=== PATIENT | female | born 1960 | race Caucasian/White ===

== ENCOUNTER 2022-05-26 08:10 | Outpatient (CLI) | payer OTHER, SELFPAY ==
[2022-05-26 10:59] LABS: Albumin* 4.4 g/dL (3.3-5.0); Chloride* 103 mmol/L (96-114); Sodium* 139 mmol/L (135-149)
[2022-05-26 11:00] LABS: Potassium* 4.9 mmol/L (3.6-5.1)
[2022-05-26 11:01] LABS: Cholesterol* 230 mg/dL (90-199)
[2022-05-26 11:02] LABS: Alanine Aminotransferase* 26 U/L (4-35); Alkaline Phosphatase* 83 U/L (40-150); Aspartate Amino Transferase* 30 U/L (12-35); Bilirubin Total* 0.5 mg/dL (0.1-1.5); Blood Urea Nitrogen* 18 mg/dL (7-30); Carbon Dioxide* 30 mmol/L (20-32); Creatinine* 0.7 mg/dL (0.5-1.5); Estimated Glomerular Filt Rate 97 ml/min; Glucose* 98 mg/dL (60-115); Total Protein* 7.3 g/dL (6.0-8.3); Triglycerides* 88 mg/dL (40-149)
[2022-05-26 11:03] LABS: Calcium* 9.7 mg/dL (8.4-10.6); HDL Cholesterol* 60 mg/dL (>=50); LDL Cholesterol Calculated 152 mg/dL (<100)
== END 2022-05-26 08:11 | disposition home or self-care (01) ==
PROVIDERS: PCP Internal Medicine; Visit Provider Internal Medicine
DX: E03.9 Hypothyroidism, unspecified (principal); Z13.6 Encounter for screening for cardiovascular disorders; R61 Generalized hyperhidrosis
CPT/HCPCS: 80053; 80061; 84443

== ENCOUNTER 2022-06-03 14:15 | Outpatient (CLI) | payer OTHER, SELFPAY ==
--- NOTE | 2022-06-03 14:30 | MR_ITS ---
[facility] [address] [facility] [address] Phone:?[phone] Fax:?[phone] Referring Physician Information: Dann Huffman M.D. [address] [facility] [address] Phone:?[phone] Fax:?[phone] Patient:Jt Sanchez D.O.B:?1960 Sex:?Female Phone:?[phone] [facility] MRN:?[id number] Exam Date:?06/03/2022 ? EXAM: MRI of the LEFT KNEE, without contrast CLINICAL INFORMATION: Female, 61 years old, with left knee pain. INDICATION: Evaluate for meniscal injury. PRIOR SURGERY: None reported. PLAIN FILMS: None available. COMPARISONS: No prior MRIs available. TECHNICAL INFORMATION: Using a 1.5T MR scanner and a localizing surface coil: sagittals: PD, PDFS coronals: PD, STIR axials: PD, T2FS SEDATION: None CONTRAST: None FINDINGS: Knee joint: Effusion: Mild to moderate left knee effusion. Popliteal cyst: [id number], inferiorly leaking/ruptured Richter cyst (axial T2FS series 4 images 14-32). Loose bodies: None. Subcutaneous and extra-articular soft tissues: Mild anterior subcutaneous soft tissue swelling extending from the patella to the tibial tubercle. Ligaments: ACL: Intact ACL anteromedial and posterolateral bundles, without sprain or tear. PCL: Intact PCL, without acute or chronic injury. MCL: Mild thickening involving the proximal one third of the superficial MCL, without MCL tear (coronal PD series 7 image 15). LCL: Intact LCL, without injury. Posterolateral corner: No posterolateral corner soft tissue injury. Popliteus, biceps femoris, iliotibial band, popliteofibular ligament and lateral gastrocnemius are intact. Posteromedial corner: No posteromedial corner soft tissue injury. Semimembranosus, pes anserine tendons and posterior oblique ligament are without injury, tendinopathy or bursitis. Extensor mechanism: Patellar tendon: Intact, without tendinopathy. Quadriceps tendon: Intact, without tendinopathy. Retinacula: Medial and lateral retinacula are intact. Fat pads: Unremarkable infrapatellar Hoffa's, quadriceps and prefemoral fat pads. Medial compartment: Medial meniscus: Apical free edge and superior surface tearing is present throughout the posterior horn over a length of 1.7 cm (sagittal PDFS series 6 images 9-14). Meniscal extrusion measures 5 mm. No parameniscal cyst. Medial femoral condyle: Broad-based grade III chondromalacia of the junction of the central and posterior surfaces of the medial femoral condyle, with mild marginal cytosis. Medial tibial plateau: Generalized grade II/III chondromalacia of the medial tibial plateau, with moderate reactive osseous changes and mild marginal osteophytosis. Lateral compartment: Lateral meniscus: No articular surface, meniscosynovial junction or root tear. No displacement, extrusion or parameniscal cyst. Lateral femoral condyle: Approximately 1.5 x 1.1 cm area of grade III chondromalacia involving the superior aspect of the posterior surface (sagittal PDFS series 6 image 22 and axial T2FS series 4 image 13). Lateral tibial plateau: No chondromalacia or osteochondral abnormality. Patellofemoral joint: Patella: Generalized grade III chondromalacia of the patella, with mild-moderate reactive osseous changes and mild marginal osteophytosis. Trochlea: Broad-based grade III chondromalacia of the medial facet and central sulcus, with mild marginal osteophytosis and reactive osseous changes. Proximal tibiofibular joint: Unremarkable, without evidence of ligament sprain injury, joint effusion or adjacent marrow edema. Bones: No stress/occult fractures or other marrow edema/pathology. IMPRESSION: 1. Apical free edge and superior surface tearing of the medial meniscal posterior horn measuring 1.7 cm, with 5 mm of meniscal extrusion. 2. Moderate osteoarthritis of the patellofemoral compartment. 3. Mild-moderate osteoarthritis of the medial compartment. 4. Mild-moderate knee joint effusion with a [id number]-vmhgq, inferiorly leaking/ruptured Richter cyst. 5. Chronic sequela low-grade proximal MCL sprain, without tear. No ACL, PCL, or LCL sprain/tear. 6. Medium-sized area of grade III chondromalacia of the posterior surface of the lateral tibial plateau. 7. No lateral meniscal tear. BC Electronically signed on 06/04/2022 9:24:00 AM by Amol Mobley M.D.
== END 2022-06-03 14:16 | disposition home or self-care (01) ==
LOC: MRI 14:16
PROVIDERS: PCP Internal Medicine; Visit Provider Internal Medicine
DX: M25.562 Pain in left knee (principal); M23.222 Derangement of posterior horn of medial meniscus due to old tear or injury, left knee; M25.462 Effusion, left knee; S83.412A Sprain of medial collateral ligament of left knee, initial encounter; M94.262 Chondromalacia, left knee; M17.12 Unilateral primary osteoarthritis, left knee
CPT/HCPCS: 73721

== ENCOUNTER 2022-09-08 09:00 | Outpatient (RCR) | payer OTHER, SELFPAY | END 2022-09-09 16:46 | disposition home or self-care (01) | PROVIDERS: PCP Internal Medicine; Visit Provider Orthopaedic Surgery Sports Medicine | DX: S83.232A Complex tear of medial meniscus, current injury, left knee, initial encounter (principal); M17.12 Unilateral primary osteoarthritis, left knee; R26.2 Difficulty in walking, not elsewhere classified; M25.662 Stiffness of left knee, not elsewhere classified; M25.562 Pain in left knee; Z51.89 Encounter for other specified aftercare | CPT/HCPCS: 97012; 97110; 97112; 97162; 97535 ==

== ENCOUNTER 2023-01-21 07:51 | Outpatient (CLI) | payer OTHER, SELFPAY | END 2023-01-21 07:52 | disposition home or self-care (01) | LOC: NFLDREF 01-30 11:26 | PROVIDERS: PCP Internal Medicine; Referring Provider Internal Medicine; Visit Provider Internal Medicine | DX: Z00.00 Encounter for general adult medical examination without abnormal findings (principal); E03.9 Hypothyroidism, unspecified; Z13.6 Encounter for screening for cardiovascular disorders; Z13.9 Encounter for screening, unspecified | CPT/HCPCS: 80053; 80061; 84443 ==

== ENCOUNTER 2023-10-07 18:44 | Outpatient (CLI) | payer OTHER, SELFPAY ==
--- OUTSIDE RECORDS SUMMARY | 2023-10-07 18:46 | XMS_ITS | Encounter Summary ---
Author Organization [facility] Address [address] [place] [id number] Care Team Providers Care Occup Therapist Name Role Phone Unavailable Primary Care Provider Unavailabl e Reason for Visit * Physical Therapy (Routine) - Closed Specialty Diagnoses / Procedures Referred By Danielito modi Referred To Contact Diagnoses Lymphedema Secondary Procedures PT or OT eval and treat (first available) Leeanna Elizondo APRN, INDUCTION HEATING EQUIPMENT SETTER [address] [place] [phone] [facility] Referral ID Status Reason Start Date Expiration Date Visits Re quested Visits Authorized [id number] Closed 06/26/2023 06/25/2024 1 1 Encounter Details Date Type Department Care Team (Latest Contact Info) Description 07/14/2023 10:00 AM EVALUATOR Comprehensive Visit Department of Physical Medicine and Rehabilitation in [place], [place] [address] [place] [phone] Leeanna Elizondo APRN, INDUCTION HEATING EQUIPMENT SETTER [address] [place] [phone] Venice Black P.T., D.P.T., OncCS [address] [place] [phone] Lymphedema Secondary Social History Tobacco Use Types Packs/Day Years Used Date Smoking Tobacco: Never Passive Smoke Exposure: Never Smokeless Tobacco: Never Alcohol Use Standard Drinks/Week Comments Yes 4 (1 standard drink = 0.6 oz pur e alcohol) [facility] Utilities Answer Date Recorded In the past 12 months has th e electric, gas, oil, or water company threatened to shut off services in your home? No 07/13/2023 Humiliation, Afraid, Rape, and Kick questionnair e Answer Date Recorded Within the last year, have y ou been afraid of your partner or ex-partner? No 07/06/2022 Within the last year, have y ou been humiliated or emotionally abused in other ways by your partner or ex-partner? No Within the last year, have y ou been kicked, hit, slapped, or otherwise physically hurt by your partner or ex-partner? No 07/06/2022 Within the last year, have y ou been raped or forced to have any kind of sexual activity by your partner or ex-partner? No 07/06/2022 Social Connection and Isolat ion Panel [NHANES] Answer Date Recorded In a typical week, how many times do you talk on the phone with family, friends, or neighbors? Twice a week 07/06/2022 How often do you get togethe r with friends or relatives? Twice a week 07/06/2022 How often do you attend chur ch or jain services? Never 07/06/2022 Do you belong to any clubs o r organizations such as anglican groups, unions, fraternal or athletic groups, or school groups? Yes 07/06/2022 How often do you attend meet ings of the clubs or organizations you belong to? More than 4 times per year 07/06/2022 Are you , , di vorced, , never , or living with a partner? 07/06/2022 AUDIT-C Answer Date Recorded Q1: How often do you have a drink containing alc ohol? 2-3 times a week 07/06/2022 Q2: How many drinks containi ng alcohol do you have on a typical day when you are drinking? 1 or 2 07/06/2022 Q3: How often do you have si x or more drinks on one occasion? Never 07/06/2022 Overall Financial Resource Strain (CARDIA) Answe r Date Recorded How hard is it for you to pa y for the very basics like food, housing, medical care, and heating? Not hard at all 07/06/2022 [facility] Occupat ional Health - Occupational Stress Questionnaire Answer Date Recorded Do you feel stress - tense, restless, nervous, or anxious, or unable to sleep at night because your mind is troubled all the time - these days? Only a little 07/06/2022 Exercise Vital Sign Answer Date Recorde d On average, how many days pe r week do you engage in moderate to strenuous exercise (like a brisk walk)? 5 days 07/13/2023 On average, how many minutes do you engage in exercise at this level? 40 min 07/13/2023 Hunger Vital Sign Answer Date Recorded Within the past 12 months, y ou worried that your food would run out before you got the money to buy more. Never true 07/13/19 24 Within the past 12 months, t he food you bought just didn't last and you didn't have money to get more. Never true 07/13/2023 PRAPARE - Transportation Answer Date Re corded In the past 12 months, has l ack of transportation kept you from medical appointments or from getting medications? No 08/2023 In the past 12 months, has l ack of transportation kept you from meetings, work, or from getting things needed for daily living? No 07/13/2023 Nutrition Answer Date Recorded Nutrition: EVOO Fat Source No 07/12 On average, how many serving s of fruits and vegetables do you eat per day (serving size is equal to 1 cup or approximately the size of a tennis ball)? 3-5 07/13/2023 Dental Answer Date Recorded Dental: Regular Dentist Yes 01/28/20 Employment Answer Date Recorded Employment status Employed and actively working without restrictions 07/13/2023 Housing Stability Answer Date Recorded What is your living situation today? I have a [facility] [place] [address] to live 07/13/2023 Education Answer Date Recorded What is the highest level of school you have completed or the highest degree you have received? Master's degree (e.g., MA, MS, Mayra, MEd, BIT TRIPOLER, CARMINE) 11/01/2018 Sex and Gender Information Value Date Recorded Sex Assigned at Female 08/05/2018 1:06 PM CDT Gender Identity Female 08/05/2018 1:06 PM CDT Sexual Orientation Straight 07/25/2020 4: 24 PM CDT documented as of this encounter Progress Notes * Venice Black P.T., David, OncCS - 07/14/2023 10:00 AM CST Physical Therapy Cancer Rehabilitation/ Lymphedema Outpatient Progress Note Patient's Name: Winnie Sanchez Referring Provider: Leeanna Elizondo APRN, INDUCTION HEATING EQUIPMENT SETTER Rehab Diagnosis: 1. Lymphedema Secondary Reason for Referral: right upper extremity lymphedema History of Present Illness: Patient underwent a bilateral mastectomy with a left sentinel node biopsy on November 05, 2018. She has a history of axillary dissection and radiation to the right breast and axilla for right sided breast cancer. Patient has right upper extremity lymphedema. Payor: [employer] / Plan: [employer] OPEN ACCESS / Product Type: PPO / SUBJECTIVE Interval History: Patient returns for her 1 year recheck for lymphedema surveillance. In the past year she has continued to be able to avoid wearing her sleeve with no noted changes in the right upper extremity. Her prior difficulties with right elbow pain have mostly resolved however she continuesto have significant pain in both feet. She has been working with physical therapy for ankle strengthening and for a diagnosis of plantar fasciitis. Patient reports that her feet do not hurt in the morning but do by the end of the day and this causes wakefulness at night. Total Visit Count: 9 OBJECTIVE Patient demonstrates maintained arches through the full gait cycle bilaterally. She walks with her hips in relative internal rotation. Patient lacks MTP flexion at the great toe on the right side. The right upper extremity is visibly larger compared to the left in the forearm area. Measurements per flow sheet rows continue to be less than 5% volume compared to the uninvolved side. L-dex score as measured by SOZO: -0.2 Bioimpedance spectroscopy (BIS) is used as part of a prospective surveillance model, supported by National Comprehensive Cancer Network Survivorship Guidelines to detect subclinical lymphedema. Intervention is triggered by an L- dex score of > 6.5 L-Dex units above baseline measurements. Resistance data in Ohms is trending somewhat upward but not significantly. The right upper extremity demonstrates no pitting edema. Superficial skin is mobile and soft. 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 Recommend patient wear compression knee-highs with padded soles during her work days. Recommend that she purchase a cushioned pair of shoes such as the [employer] brand or [employer] running shoes specifically the Guerra series. These shoes would provide additional cushion that may favored her higher arch andrigid foot position. Patient notes that she has some greater comfort in more flexible soles. Additionally added heel cord and soleus stretching for the ankle. Recommend hip strengthening. Reviewed prior hip exercises including banded squats, side steps with resistance at the ankles, and other core strengthening. Patient may be able to increase power proximally in the core to reduce the workload on her feet especially considering the uneven terrain where she works daily. Regarding the right upper extremity recommend no changes. It is reasonable for her to continue to not wear her sleeve however slight upward trend may be due to slight upward trend in her body weight.Patient will double her efforts at healthy eating which already does. Home Exercise Program/Education: Access Code: [email or web address] URL: [email or web address] Date: 07/14/2023 Prepared by: Venice Black Exercises - Squat with Chair Touch and Resistance Loop - 1 x daily - 7 x weekly - 3 sets - 10 reps - Side Stepping with Resistance at Ankles - 1 x daily - 7 x weekly - 3 sets - 10 reps - Japanese Twists (Beginner, Feet on Ground) - 1 x daily - 7 x weekly - 3 sets - 1 reps - 30 hold - Supine Bicycles - 1 x daily - 7 x weekly - 3 sets - 1 reps - 30 hold - Standard Plank - 1 x daily - 7 x weekly - 3 sets - 1 reps - 30 hold - Gastroc Stretch on Wall - 1 x daily - 7 x weekly - 1 sets - 1 reps - 60 hold Assessment Patient with right upper extremity needing some ongoing surveillance to monitor management of this chronic condition. Patient also continues to work in an exceptionally physical job and has been experiencing bilateral foot pain and left knee pain. Recommend patient continue to return yearly for surveillance of right upper extremity lymphedema. At the next visit recommend a recheck with Dr. Hunter who can help coordinate DME prescriptions and other musculoskeletal assessment. Functional Goals and Timeframes: Goal #1: Patient will demonstrate an independent and effective lymphedema management program. Goal #1 Date: 08/13/23 Goal #1 Status: Met Goal #2: Patient will demonstrate the ability to complete a full day of work without restlessness at night due to bilateral foot pain. Goal #2 Date: 08/13/23 Goal #2 Status: Progressing Plan TREATMENT PLAN Number of Visits: up to 1 visits Frequency: Follow-up visit only Plan: Continue with current plan Plan Comments: Recheck in one year. In 1 year will request a consult with Dr. Hunter for ongoing management of right upper extremity lymphedema and lower extremity musculoskeletal discomfort. Treatment interventions may include: Daytime Compression Program: None Daytime Compression Program Additional Details: Continue to observe for any changes in the right upper extremity. PT: Time Spent with Patient Evaluations PT Re-eval (min): 30 min Therapeutic Interventions Therapeutic Activity (min): 45 min Time Tracking Total Timed Units (min): 45 min Total Treatment Time (min): 75 min Theresa Black P.T., D.P.T., OncCS UATOR documented in this encounter Plan of Treatment Not on file documented as of this encounter Visit Diagnoses Diagnosis Lymphedema Secondary documented in this encounter
--- OUTSIDE RECORDS SUMMARY | 2023-10-07 18:46 | XMS_ITS | Referral Summary ---
Author Organization [facility] Address [address] [place] [id number] Care Team Providers Care Newspaper Vendor Name Role Phone Unavailable Primary Care Provider Unavailabl e Source Comments Patient records contain information from all sites at [facility]. For routine questions regarding patient records, call [phone] during business hours, M-F 8:00 AM - 5:00 PM Central Time. Record requests for emergency care only can be directed to [phone] at any time.[facility] Encounters Date Type Department Care Team Description 07/14/2023 10:00 AM ASSISTANT UNIT FORESTER Comprehensive Visit Department of Physical Medicine and Rehabilitation in [address] [phone] Leeanna Elizondo APRN, OBSTETRICIAN [place] Black, P.T., D.P.T., OncCS Lymphedema Secondary 07/14/2023 8:00 AM ASSISTANT UNIT FORESTER Office Visit [facility] in [place], [place] [address] [place] [phone] Leeanna Elizondo APRN, OBSTETRICIAN Malignant Neoplasm Of Breast Female Left (HCC) (Primary Dx); Absence Of Breast Acquired Bilateral; Keloid; Lymphedema Secondary 07/09/2023 10:30 AM ASSISTANT UNIT FORESTER Clinical Communication Virtual Review in [place], [place] 200 [place] [id number] Pre-visit Intake from Last 3 Months Allergies Active Allergy Reactions Criticality Noted Date Comments House Dust Mite Cough Medium 03/20/2008 Iodine Shortness of breath (Reselect Reaction) Medium 05/18/2013 Iodine And Iodide Containing Products Shortness of breath (Reselect Reaction),Other (see comments) Medium 05/11/2014 Mold Rash Medium 1980 Talty mold per patient Medications Medication Sig Dispensed Refills Start Date End Date Status albuterol (PROVENTIL HFA,VENTOLIN HFA) 90 mcg/actuation inhaler Inhale 1 puff 4 (four) times a day as needed for shortness of breath. 05/11/2004 Active EPINEPHrine 0.1 mg/0.1 mL auto-injector as needed. 05/11/2014 Active fluticasone propionate (FLONASE) 50 mcg/actuation nasal spray Administer 2 sprays into each nostril daily. 1 06/24/2018 Active ibuprofen (ADVIL,MOTRIN) 200 mg tablet Take 2 tablets by mouth daily as needed for pain. 08/29/2015 Active levothyroxine (SYNTHROID, LEVOTHROID) 75 mcg tablet Take 75 mcg by mouth every morning before breakfast. 3 07/15/2018 Active mometasone (ASMANEX) 220 mcg/ actuation (30) inhaler Inhale 1 puff at bedtime. 05/11/2008 Active multivitamin capsule Take 1 tablet by mouth daily. 03/21/2008 Active acetaminophen (TYLENOL) 500 mg tablet Take 2 tablets (1,000 mg total) by mouth 4 (four) times a day. 0 11/06/2018 Active Additional Information Patient taking differently:1,000 mg oralAs needed, Reported on 07/25/2021 calcium carbonate (TUMS E-X) 750 mg (300 mg calcium) chewable tablet Chew 1 tablet as needed. Active naproxen sodium (ALEVE/ANAPROX) 220 mg tablet Take 220 mg by mouth as needed. Active calcium carbonate-vitamin D3 1,250 mg (500 mg calcium)-5 mcg (200 Unit) per tablet Take 1 tablet by mouth daily. Active gabapentin (NEURONTIN) 300 mg capsule Take 2 capsules by mouth at bedtime. 05/26/2022 Active montelukast (SINGULAIR) 10 mg tablet Take 10 mg by mouth at bedtime. 04/30/2023 Active Active Problems Problem Noted Date Diagnosed Date Malignant Neoplasm Of Breast Upper Outer Quadrant Female Left 10/07/2018 Malignant Neoplasm Of Unspec ified Site Of Laterality Unknown Female Breast 10/07/2018 Lymphedema Secondary Immunizations Name Administration Dates Next Due H1N1 All Forms 04/24/2009 HepA / HepB 01/25/2003,08/19/2002,07/22/2002 Influenza (IM) Preservative Free 04/23/2012 Influenza Split 02/08/2015,04/21/2012 Influenza, Injectable, Mdck, Quadrivalent 01/31/2021 Influenza, Injectable, Quadrivalent 01/09,02/09/2018,02/07/2016,2014 Influenza, Seasonal, Injectable 02/04/2011,02/08,03/20/2006 Influenza, Unspecified 02/25/2023 MMR 05/15/2006 PCV13 01/26/2023,01/26/2020(Deferred: Other) PPSV23 01/26/2020 RZV (SHINGRIX) 03/03/2019, 9,11/04/2018,2018(Deferred: Not available from crime scene analyst) SARS-COV-2 (COVID-19) - MODERNA(Discontinued) 04/03/2021,07/04/2020,06/06/2020,2020 Td (Adult), adsorbed 01/29/2005 Td Preservative Free (TENIVA C, DECAVAC) 11/22/2005 Tdap 10/31/2015 YF 08/19/2002 influenza high dose (65 year s or older) (PF) 02/08/2015 influenza vaccine QV(FLUBLOK ) (18 years or older) (PF) 01/28/2022 influenza vaccine quad (FLUZONE/FLUARIX) (6 months and older)(PF) 03/03/2019,02/13/2014,02/14/2013,2008 Social History Tobacco Use Types Packs/Day Years Used Date Smoking Tobacco: Never Passive Smoke Exposure: Never Smokeless Tobacco: Never Tobacco Cessation:Counseling Given: Not Answered Alcohol Use Standard Drinks/Week Comments Yes 4 (1 standard drink = 0.6 oz pur e alcohol) [facility] Utilities Answer Date Recorded In the past 12 months has [employer], [employer], oil, or water [employer] threatened to shut off services in your [...] 07/06/2022 How often do you attend chur or tenriism services? Never 07/06/2022 Do you belong to any clubs o r organizations such as jain groups, unions, fraternal or athletic groups, or [...] and heating? Not hard at all 07/06/2022 [facility] Occup[facility] ional [facility] - Occupational Stress [...] your living situation today? I have a [facility] place to live 07/13/2023 Education Answer Date Recorded What is the highest level of school you have completed or the highest degree you have received? Master's degree (e.g., MA, MS, Mayra, MEd, CONSULTING UTILITY FORESTER, [employer]) 11/01/2018 Sex and Gender Information Value Date Recorded Sex Assigned at Female 08/05/2018 1:06 PM CDT Gender Identity Female 08/05/2018 1:06 PM CDT Sexual Orientation Straight 07/25/2020 4: 24 PM CDT Last Filed Vital Signs Vital Sign Reading Time Taken Comments Blood Pressure 103/66 07/14/2023 7:52 AM ASSISTANT UNIT FORESTER Pulse 66 07/14/2023 7:52 AM ASSISTANT UNIT FORESTER Temperature 36.1 ??C (97 ??F) 03/08/2019 10:50 AM CDT Respiratory Rate 14 03/08/2019 10:50 AM CDT Oxygen Saturation 97% 11/06/2018 2:20 PM CDT Inhaled Oxygen Concentration - - Weight 85.9 kg (189 lb 4.2 oz) 07/14/2023 7:52 A M ASSISTANT UNIT FORESTER Height 167 cm (5' 5.75) 07/14/2023 7:52 AM ASSISTANT UNIT FORESTER Body Mass Index 30.78 07/14/2023 7:52 AM ASSISTANT UNIT FORESTER Plan of Treatment Not on file Medical Devices Implanted Type Area Machine Stitcher Device Identifier Shelf Expiration Date Model / Serial / Lot Conversions - Default Historical Implant Device Implanted:06/12 (Quantity not on file) Clip Left: Breast Description:Body Location - Breast L. Device Status Text - ClipOther. Conversions - Default Historical Implant Device Implanted:11/2016 (Quantity not on file) Hardware e.g. pins/screws /rods Left: Wrist Description:Body Location - Wrist L. plate screws. Device Status Text - Hardware. Clp Hrzn Ti 24 Clp Nito - [id number] Implanted:Qty: 1 on 11/05/2018 by Deejay Rinaldi M.D. at [facility] Hardware e.g. pins/screws /rods [employer] [id number] / / Mrk Brst Tiss Sn Mri 14ga - [id number] Implanted:Qty: 1 on 09/22/2018 at [facility] [employer] [facility] Marker Left: Breast C.R.Bard [id number] / / Misc Other Misc Other Tooth Procedures Procedure Name Priority Date/Time Associated Diagnosis Comments COMPREHENSIVE METABOLIC PANEL, S/P Routine 12/14/2018 10:18 AM CDT Malignant Neoplasm Of Breast Female Left (HCC) from Last 3 Months or Most Recently Relevant to Health Maintenance Results * Comprehensive Metabolic Panel (12/14/2018 10:18 AM CDT) Potassium, S 4.4 3.6 - 5.2 mmol/L 12/14/2018 1:13 PM CDT Sodium, S 138 135 - 145 mmol/L 12/14/2018 1:13 PM CDT Chloride, S 101 98 - 107 mmol/L 12/14/2018 1:13 PM CDT Bicarbonate, S 23 22 - 29 mmol/L 12/14/2018 1:13 PM CDT Anion Gap 14 7 - 15 12/14/2018 1:13 PM CDT BUN (Blood Urea Nitrogen), S 20 6 - 21 mg/dL 12/14/2018 1:13 PM CDT Creatinine 0.70 0.59 - 1.04 mg/dL 12/14/2018 1:13 PM CDT eGFR-Non Black/ >90 >=60 mL/min/BS A 12/14/2018 1:13 PM CDT Comment: ----ADDITIONAL INFORMATION---- Estimated GFR calculated using the 2009 CKD_EPI creatinine equation. eGFR-Black/ >90 >=60 mL/min/BS A 12/14/2018 1:13 PM CDT Comment: ----ADDITIONAL INFORMATION---- Estimated GFR calculated using the 2009 CKD_EPI creatinine equation. Calcium, Total, S 9.9 8.8 - 10.2 mg/dL 12/14/2018 1:13 PM CDT Glucose, S 97 70 - 140 mg/dL 12/14/2018 1:13 PM CDT Protein, Total, S 7.0 6.3 - 7.9 g/dL 12/14/2018 1:13 PM CDT Albumin, S 4.6 3.5 - 5.0 g/dL 12/14/2018 1:13 PM CDT Aspartate Aminotransferase (AST), S 24 8 - 43 U/L 12/14/2018 1:13 PM CDT Alkaline Phosphatase, S 72 35 - 104 U/L 12/14/2018 1:13 PM CDT Alanine Aminotransferase (ALT), S 23 7 - 45 U/L 12/14/2018 1:13 PM CDT Bilirubin, Total, S 0.3 <=1.2 mg/dL 12/14/2018 1:13 PM CDT Blood (Blood, Venous) 12/14/2018 10:18 AM CDT 12/14/2018 10:23 AM CDT Gary Morales M.D. LAB BLOOD ADD-ON [facility] [address] [place] [id number], [facility] from Last 3 Months or Most Recently Relevant to Health Maintenance Advance Directives For more information, please contact: [phone] * Full Code (Latest Code Status on File) Date Activated Date Inactivated Comments 11/05/2018 5:31 PM 11/06/2018 6:30 PM Question Answer Comments Full Code: Not Discussed Due to: Patient not available * Full Code Date Activated Date Inactivated Comments 11/05/2018 8:58 AM 11/05/2018 5:31 PM Question Answer Comments Full Code: Not Discussed Due to: Not medically appropriate
--- OUTSIDE RECORDS SUMMARY | 2023-10-07 18:46 | XMS_ITS ---
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 Past Plans No past plan information found. Radiation Treatments * No radiation treatments are documented for this patient in Psychiatric. Treatments may have been administered in another system. 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 Your Survivorship Care Plan Provided on 01/26/2020 General Information Patient name Winnie Sanchez (home) [phone] (work) Date of 1960 Introduction This is your personal survivorship care plan. It is both a summary of your treatment history as well as a follow-up plan to guide you through the management of your continued medical care. The plan was developed by a multidisciplinary team of [facility] cancer providers to help you understand, discuss, and plan post-treatment needs with your healthcare providers, including your primary care team. It includes detailed medical information regarding your treatment as well as information relating to potential shorter and long-term side-effects post-treatment. What is Survivorship? The most widely used definition of survivorship care involves the following elements: 1. Prevention of recurrent and new cancers, and of other late effects; 2. Surveillance for cancer spread, recurrence, or second cancers; assessment of medical and psychosocial late effects; 3. Intervention for consequences of cancer and its treatment, for example: medical problems such aslymphedema and sexual dysfunction; symptoms, including pain and fatigue; psychological distress experienced by cancer survivors and their caregivers; and concerns related to employment, insurance, and disability; and 4. Coordination between specialists and primary care providers to ensure that all of the survivors health needs are met. Care Team Russell Pace M.D. (Breast Clinic) Deejay Rinaldi M.D. (General Surgery) Gary Morales MD. (Medical Oncology) Lidya Good APRN, MOLD STAMPER AND REPAIRER. (Breast Clinic) Raina Szymanski, MS, [facility] [place]. 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 No pathogenic variants were detected by this testing. Background Information Family history Cancer-related family history includes Kidney cancer in her sister; Melanoma in her maternal grandmother. Social History Alcohol use reports that she drinks alcohol. Tobacco use reports that she has never smoked. She has never used smokeless tobacco. 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 Morales: The patient's history dates back to 2003 when she was diagnosed with a stage II breast cancer, grade 2, infiltrating ductal with extensive DCIS. The tumor size was 1.4 cm and ER/MS were positive and HER2 negative. She had a total of 2 of 21 lymph nodes involved with metastatic disease, and following lumpectomy she did receive 4 cycles of AC followed by 4 cycles of Taxol, 5 years of tamoxifen, and then 5 years of anastrozole. Additionally, she did have adjuvant radiation therapy as well. The patient completed the anastrozole in 2014. Since that time, she has been followed [facility] by Ms. Good. August 2018 MRI demonstrated a 0.8-cm lesion involving the left upper outer breast. It was biopsy proven to be invasive ductal, intermediate grade, ER/MS positive, and HER2 negative with a Ki-67 of 24%. 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 The left breast mastectomy specimen demonstrated DCIS, intermediate nuclear grade, involving a 3-mm area in greatest linear extent. All margins were negative. Two sentinel lymph nodes were examined as well and were negative. 03/08/[address] Morales: I had an extensive discussion with the patient. We discussed that for the 4-mm left-sided breast cancer, the risk for a life-threatening distant recurrence would be less than 5%. The patient is not interested in further adjuvant hormonal therapy at this time. Schedule of Surveillance Testing and Visits The basis for the surveillance testing schedule and test recommendations in this section are largely based on guidelines from the [place] Society of [employer] Oncology (ASCO), the biggest cancer society regarding clinical practice. -Physical examinations should be performed every 3 to 6 months for the first 3 years, every 6 to 12months for years 4 and 5, and annually thereafter. -Monthly breast and/or chest wall self examinations. -Women who had bilateral (both sides) mastectomy with or without reconstruction do not need furtherbreast imaging studies for screening or surveillance. Surveillance visits How often: Every 6 months for the first 5 years after diagnosis With Who: Breast Clinic Additional information: Follow-up care with your Primary Care Physician (PCP) Follow-up care with your primary care physician is recommended for age- appropriate cancer screenings, for monitoring blood pressure, cholesterol, blood sugar, weight, and for other medical conditions. Long- term Side effects Possible late and long-term effects of cancer treatment can include bone thinning, menopausal symptoms, and nerve damage. Please talk to your care team about ways to manage these side effects. Symptoms of Recurrence In addition, please contact your healthcare provider with any new symptoms that may signify a breast cancer recurrence including lumps or skin changes on your breast or chest wall, pain that lasts more than a few weeks, difficulty breathing, or unintentional weight loss. Understand the Emotional Impact After cancer treatment, you may feel your life has changed in some ways that are hard to explain. It may seem hard to get back to ???normal.?? It is common for people who have had cancer to feel many emotions, including anxiety, depression, anger, grief or guilt. These are reasonable responses to a big health change. To help handle these emotions, you may need to decide what ???normal?? means to you after all the changes you have gone through. Doing this may help you find a new way to live that brings you more kia and meaning. If you feel emotionally overwhelmed after your cancer treatment, tell your health care provider. She or he may be able to connect you with a support group or other support services. Your health care provider may also offer you treatment choices for specific concerns or refer to you a mental health p rofessional. * Anxiety Anxiety is a common emotion among people who have had cancer. Fear of cancer coming back often causes anxiety. Because of this, follow-up testing can be stressful. Other common sources of anxiety include job issues, concerns about money or relationships, and worries about the physical effect of cancer treatment. What you can do -Talk about your worries with someone you trust. -Try stress management tools, such as meditation, prayer and regular exercise. -Learn the signs that may tell you your cancer has returned. Learn what you can do to lower your cancer risk. -Focus on the healthy choices you can make in areas of your life that you can control. If anxiety makes your daily life difficult, see your health care provider. * Depression After cancer treatment, you may have many different feelings as you think about what you have been through. Some of these feelings may not be positive. That is normal. However, negative feelings thatstay with you for more than two weeks or get in the way of your daily life can be signs of depression. If this happens to you, talk to your health care provider. Symptoms of depression include: -Sadness -Hopelessness -Loss of interest in activities -Irritability -Difficulty Sleeping -Change in appetite -Difficulty concentrating -Problems thinking clearly * Anger Many cancer survivors feel a sense of anger. Cancer may change many parts of your life, including relationships, school, work, and residential plans. Anger is a normal response to those changes. What you can do? It is important to express your anger in a healthy way. Talk about the way you are feeling with someone you trust. Think about whether you can talk with: -Friends -Family members -Other people who have been through cancer -A professional counselor -Your health care provider Fatigue Some cancer survivors report that they still feel tired or worn out. In fact, fatigue is one of themost common complaints during the first year of recovery. Rest or sleep does not cure the type of fatigue that you may have. Doctors do not know its exact causes. The causes of fatigue are different for people who are receiving treatment than they are for those who have finished. Fatigue during treatment can be caused by cancer therapy. Other problems can also play a part in fatigue, like anemia (having too few red blood cells) or having a weak immune system. Poor nutrition, not drinking enoughliquids, and depression can also be causes. Pain can make fatigue worse. Researchers are still learning about what may cause fatigue after treatment. How long will fatigue last? There is no normal pattern. For some, fatigue gets better over time. Some people may still feel energy loss years later. Some people feel very frustrated when fatigue lasts longer than they think it should and when it gets in the way of their normal routine. They may also worry that their friends, family, and coworkers will get upset with them if they continue to show signs of fatigue. Getting Help Talk with your doctor or nurse about what may be causing your fatigue and what can be done about it. Ask about: -How many medicines you are taking or other medical problems you have might affect your energy level -How you can control your pain, if pain is a problem for you -Exercise programs that might help, such as walking -Relaxation exercises -Changing your diet or drinking more fluids -Medicines or nutritional supplements that can help -Specialists who might help you, such as physical therapists, occupational therapists, receptionist secretary, or mental health care providers Coping With Fatigue Here are some ideas: -Plan your day. Be active at the time of day when you feel most alert and energetic. -Save your energy by changing how you do things. For example, sit on a stool while you cook or washdishes. -Take short naps or rest breaks between activities. -Try to go to sleep and wake up at the same time every day. -Do what you enjoy, but do less of it. Focus on old or new interests that don???t tire you out. Forexample, try to read something brief or listen to music. -Let others help you. They might cook a meal, run errands, or do the laundry. If no one offers, askfor what you need. Friends and family might be willing to help but may not know what to do. -Choose how to spend your energy. Try to let go of things that don???t matter as much now. -Think about joining a support group. Talking about your fatigue with others who have had the same problem may help you find new ways to cope. Sexual Changes Sexuality is part of being human. Love, affection and intimacy all play a role in healthy relationships. Cancer and its treatments may change the way you view your body and your ability to be intimate with your partner. What you can do: -After treatment, ask your health care provider about sexual changes you can expect. -Be open and communicate with your partner about your feelings, concern and needs. You may need to find new ways to be intimate and to express your love. -Talk with your health care provider about any concerns you may have. You also may find it helpful to speak with a provider who specializes in sexuality. Spiritual issues A cancer diagnosis may change your spirituality. You may find it to be stronger and deeper and fromthe challenges you have overcome, or you may feel abandoned and struggle with the question Why me? What you can do - Take time to think about your spirituality. Try to find a sense of peace within your own spiritual framework. -Talk with your spiritual or semiconductor processing group leader to help guide you through some of the questions raised by your illness. -Consider using the [facility] staff at [facility] to help you with your spiritual questions. Changes in Weight and Eating Habits Some survivors who have had certain kinds of chemotherapy or medicines have problems with weight gain. Sometimes the added pounds stay on even when treatment ends. Breast cancer survivors who have had certain types of chemotherapy gain weight in a different way--they may lose muscle and gain fat tissue. Unfortunately, the usual ways people try to lose weight may not work for them. Try to be patient with yourself. Look for the positive things that you can control, such as eating a healthy diet. Try to focus on the fact that treatment is over, and you are trying to get stronger with time. Some cancer survivors have the opposite problem: they have no desire to eat, and they lose weight. Some men say that weight loss or loss of muscle tone is a bigger concern for them than weight gain. It makes them feel less strong and like less of a man. Managing a Healthy Weight For weight issues, ask your doctor or nurse about: -Doing strength-building exercises, if you have lost muscle or gained fat tissue -Talking to a dietitian or plywood patcher who can help you plan a healthy diet that won???t add extrapounds Regaining a Lost Appetite Here are some tips that have helped others improve their appetites: -Start with small meals. Five small meals a day may be easier to manage than three larger ones. -Focus on your favorite foods. If the thought of eating still lacks appeal, try the foods you really liked before treatment to jump-start your appetite. Try adding some fresh fruit, juice, or other flavoring to improve the taste. -Stay active. A short walk before a meal can help you feel hungry. Back to Work Going back to work can be a challenging transition after cancer treatment. If you have questions about employment, ask your health care provider to refer you to a [facility] social service manager. He or shecan give you workplace information. Americans with Disabilities Act If you believe that your physical function is temporarily or permanently affected by cancer or its treatment, you should know about the Americans with Disabilities Act, or ADA. ADA bans discrimination against qualified employees with disabilities who can perform the essential functions of their job, with or without reasonable accommodations. Cancer survivors who return to work are due any reasonable change or adjustment in their work environment that allows a person with a disability to have equal opportunities. A social service manager can help you look at your situation and the Americans with Disabilities Act Genetic testing and employment Sometimes cancer diagnosis and treatment involves genetic testing. This information becomes a part of your medical record. It is against the law for an employer to discriminate against a job applicant or a current or former employee because of genetic information. Wellness Recommendations: Healthy food choices include a wide variety of fruits, vegetables, whole grains, poultry, and fish while minimizing refined grains, processed and red meats, desserts, and high?fat dairy products. Exercise after cancer treatment improves quality of life, fatigue, mood, muscle strength, and physical functioning. It also decreases the risk of cancer recurrence and the risk of cardiovascular disease. Work up to exercising 30 minutes/day at least 5 days/week, and strive to achieve a healthy weight (BMI 18.5?25). Alcohol use is linked to the risk of breast cancer recurrence. If you choose to drink alcohol, do so in moderation (no more than 7 drinks/week on average). Tobacco use may also increase risk of breast cancer recurrence. If you smoke, talk to your doctor to help you quit. The [facility] can help. Stress management tools such as meditation, prayer, and breathing exercises may be helpful. If you develop feelings of worry, anxiety, sadness, or hopelessness that persist for > 2 weeks, talk to a health care provider. Sleep is important for healing and well-being. Most adults require 7?9 hours of sleep/night. If youare having difficulty sleeping, talk to your provider .
--- OUTSIDE RECORDS SUMMARY | 2023-10-07 18:46 | XMS_ITS ---
Author Organization [facility] Address [address] [place] [address] Care Team Providers Care Publications Production Supervisor Name Role Phone Unavailable Unavailable Unavailable Surgery Details Not on file Complications Check Surgery Details section. Procedure Estimated Blood Loss Check Surgery Details section. Procedure Findings Check Surgery Details section. Procedure Specimens Taken Check Surgery Details section.
--- OUTSIDE RECORDS SUMMARY | 2023-10-07 18:46 | XMS_ITS | Encounter Summary ---
Author Organization [facility] Address [address] [place] [id number] Care Team Providers Care Sales Exec Name Role Phone Unavailable Primary Care Provider Unavailabl e Reason for Visit * Reason Comments Establish Care * Outpatient (Routine) - Closed Specialty Diagnoses / Procedures Referred By Danielito modi Referred To Contact Breast Clinic Leeanna Elizondo APRN, HEALTH AND WELLNESS SALES CONSULTANT [address] [place] [phone] [facility] Referral ID Status Reason Start Date Expiration Date Visits Re quested Visits Authorized [id number] Closed 07/09/2022 07/08/2025 1 1 Encounter Details Date Type Department Care Team ([facility] Contact Info) Description 07/14/2023 8:00 AM [employer] Office Visit Breast Diagnostic Clinic in [place], [place] [address] [place] [phone] Leeanna Elizondo APRN, HEALTH AND WELLNESS SALES CONSULTANT [address] [place] [phone] Malignant Neoplasm Of Breast Female Left (HCC) (Primary Dx); Absence Of Breast Acquired Bilateral; Keloid; Lymphedema Secondary Social History Tobacco Use Types Packs/Day Years Used Date Smoking Tobacco: Never Passive Smoke Exposure: Never Smokeless Tobacco: Never Tobacco Cessation:Counseling Given: Not Answered Alcohol Use Standard Drinks/Week Comments Yes 4 (1 standard drink = 0.6 oz pur e alcohol) [facility] Utilities Answer Date Recorded In the [...] often do you attend chur ch or denominational services? Never 07/06/2022 Do you belong to any clubs o r organizations such as jewish groups, unions, fraternal or athletic groups, or [...] and heating? Not hard at all 07/06/2022 [facility] of Occupat ional Health - Occupational Stress [...] Date Recorded Dental: Regular Dentist Yes 01/28/20 21 Employment Answer Date Recorded Employment status Employed and actively working without restrictions 07/13/2023 Housing Stability Answer Date Recorded What is your living situation today? I have a [facility] place to live 07/13/2023 Education Answer Date Recorded What is the highest level of school you have completed or the highest degree you have received? Master's degree (e.g., MA, MS, Mayra, MEd, INDUSTRIAL CAFETERIA MANAGER, CARMINE) 11/01/2018 Sex and Gender Information Value Date Recorded Sex Assigned at Female 08/05/2018 1:06 PM CDT Gender Identity Female 08/05/2018 1:06 PM CDT Sexual Orientation Straight 07/25/2020 4: 24 PM CDT documented as of this encounter Last Filed Vital Signs Vital Sign Reading Time Taken Comments Blood Pressure 103/66 07/14/2023 7:52 AM [employer] Pulse 66 07/14/2023 7:52 AM [employer] Temperature - - Respiratory Rate - - Oxygen Saturation - - Inhaled Oxygen Concentration - - Weight 85.9 kg (189 lb 4.2 oz) 07/14/2023 7:52 A M [employer] Height 167 cm (5' 5.75) 07/14/2023 7:52 AM [employer] Body Mass Index 30.78 07/14/2023 7:52 AM [employer] documented in this encounter Progress Notes * Leeanna Elizondo, ASSOCIATE DIRECTOR OF DEVELOPMENT, HEALTH AND WELLNESS SALES CONSULTANT - 07/14/2023 8:00 AM CST CHIEF COMPLAINT / REASON FOR VISIT Breast cancer follow-up HISTORY OF PRESENT ILLNESS Winnie Sanchez is a 62 y.o. female from [place], [place]. She is accompanied today by her . Her breast cancer history is as follows: Oncology History Malignant Neoplasm Of Breast Upper Outer Quadrant Female Left (HCC) 09/22/2018 Biopsy/Pathology Dr. Morales: The patient's history dates back to 2003 when she was diagnosed with a stage II breast cancer, grade 2, infiltrating ductal with extensive DCIS on the RIGHT. The tumor size was 1.4 cm and ER/SC were positive and HER2 negative. She had a total of 2 of 21 lymph nodes involved with metastatic disease, and following lumpectomy she did receive 4 cycles of AC followed by 4 cycles of Taxol, 5years of tamoxifen, and then 5 years of anastrozole. Additionally, she did have adjuvant radiation therapy as well. The patient completed the anastrozole in 2014. Since that time, she has been [facility] by Ms. Good. August 2018 MRI demonstrated a 0.8-cm lesion involving the left upper outer breast. It was biopsy proven to be invasive ductal, intermediate grade, ER/SC positive, and HER2 negative with a Ki-67 [...] further adjuvant hormonal therapy at this time. Genetic Testing and Tumor Genotyping Negative genetic testing in 2019; Breast Cancer Guidelines-Based Panel and Renal/Urinary Tract Cancers Panel from [facility] I saw Mrs. Sanchez last in the [facility] on July 09, 2022. At that time she had a satisfactory clinical examination. Interval history: Mrs. Sanchez reports that overall she has been well. She notes no new chest wall concerns. She continues to massage the hypertrophic scars on her chest wall and has opted to do no injections. She is followed annually in the lymphedema clinic here in [place]. She denies any new constitutional symptoms such as unexplained weight loss, fevers, night sweats, bone pain, persistent cough, abdominal pain, or headaches. BREAST CANCER RISK PROFILE , 1st parity age 33, she breast-fed more than a year, menarche age 10. Chemotherapy induced menopause at age 44. She retains her uterus and ovaries. She did use control pills for 6 months or less never before 1974 and none currently. She has never used hormone replacement therapy or fertility meds and denies exposure to GERALD. She has had 3 or more breast biopsies showing invasive or noninvasive breast cancer. She has had prior lumpectomy, and now bilateral mastectomies without reconstruction. She has had prior breast radiation. She is a never smoker with no secondhand smoke exposure.She drinks 1-2 alcoholic beverages most days. She exercises regularly. Maximum height 5 ft 5 in. Race white, not or . She is not adopted. 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 OBJECTIVE PHYSICAL EXAM General: Pleasant woman in no acute distress. BMI 30.8. Lymph: No palpable submandibular, submental, cervical, supraclavicular, infraclavicular, or axillary adenopathy. Skin: Warm and dry with normal turgor. Extremities: Good range of motion of both shoulders. Right upper extremity lymphedema present. Breasts: Breasts are surgically absent. Well-healed hypertrophic (left greater than right) mastectomy scars present. There is also a well-healed scar at the superior left chest wall from previous port placement and a small raised scar just above the mid scar on the right. Palpation reveals no worrisome nodularity or masses along the chest wall or the incisions. ASSESSMENT/PLAN #1 Malignant Neoplasm Of Breast Female Left (HCC) #2 Absence Of Breast Acquired Bilateral #3 Keloid #4 Lymphedema Secondary Clinical examination today was satisfactory. Although she was scheduled to see Theresa Black in the lymphedema clinic tomorrow, we were able to get that rescheduled for today. In regard to ongoing follow-up, Mrs. Sanchze is now five years out from her left breast cancer diagnosis and 20 years out from her right breast cancer diagnosis. As stated above, she has been seen in the lymphedema Clinic annually. I explained that technically, she could graduate from the [facility] at this time, however, she feels she may need to be seen in the Breast Clinic in order to have her follow-up in lymphedema clinic continue. I am not averse to continuing to see her every 1-2 years here in breast Clinic, particularly if it is felt she needs to continue following in the lymphedema clinic. She will talk with Theresa Black about this later today. We spent some time discussing signs and symptoms to watch for that might be concerning for a new breast cancer metastatic breast cancer. I reminded her the healthy lifestyle is her best option for maintaining good health and reducing risk for breast cancer recurrence. I would advise at least 150-300 minutes of exercise per week, with at least two days of strength training; limiting alcohol; maintaining healthy weight/BMI (less than 25); and eating a mostly Mediterranean-style diet. BREAST CLINIC RECOMMENDATIONS: 1. Monthly breast observation and palpation. Please report any changes promptly. 2. Clinical breast/chest wall examination annually. 3. Follow-up in the Lymphedema Clinic as directed. PATIENT EDUCATION Ready to learn, no apparent learning barriers were identified; learning preferences include listening. Explained diagnosis and treatment plan; patient expressed understanding of the content. [employer] documented in this encounter Plan of Treatment Not on file documented as of this encounter Visit Diagnoses Diagnosis Malignant Neoplasm Of Breast Female Left (HCC)- Primary Absence Of Breast Acquired Bilateral Keloid Lymphedema Secondary documented in this encounter
--- OUTSIDE RECORDS SUMMARY | 2023-10-07 18:46 | XMS_ITS | Clinical Summary ---
Author Organization [facility] Address [address] [place] [address] Care Team Providers Care Director Database Name Role Phone Unavailable Primary Care Provider Unavailabl e Source Comments Patient records contain information from all sites at [facility]. For routine questions regarding patient records, call [phone] during business hours, M-F 8:00 AM - 5:00 PM Central Time. Record requests for emergency care only can be directed to [phone] at any time.[facility] Allergies Active Allergy Reactions Criticality Noted Date Comments House Dust Mite Cough Medium 03/20/2008 Iodine Shortness of breath (Reselect Reaction) Medium 05/18/2013 Iodine And Iodide Containing Products Shortness of breath (Reselect Reaction),Other (see comments) Medium 05/11/2014 Mold Rash Medium 1980 [place] mold per patient Medications Medication Sig Dispensed [...] Laterality Unknown Female Breast 10/07/2018 Lymphedema Secondary Encounters Date Type Department Care Team Description 07/14/2023 10:00 AM MEDICAL OFFICER PSYCHIATRY Comprehensive Visit Department of Physical Medicine and Rehabilitation in [address] [phone] Leeanna Elizondo APRN, BOARD CERTIFIED ORTHODONTIST Venice Black P.T., D.P.T., OncCS Lymphedema Secondary 07/14/2023 8:00 AM MEDICAL OFFICER PSYCHIATRY Office Visit Breast Diagnostic Clinic in [address] [phone] Leeanna Elizondo APRN, BOARD CERTIFIED ORTHODONTIST Malignant Neoplasm Of Breast Female Left (HCC) (Primary Dx); Absence Of Breast Acquired Bilateral; Keloid; Lymphedema Secondary 07/09/2023 10:30 AM MEDICAL OFFICER PSYCHIATRY Clinical Communication Virtual Review in [address] [phone] Pre-visit Intake from Last 3 Months Immunizations Name Administration Dates Next Due H1N1 All Forms 04/24/2009 HepA / HepB 01/25/2003,08/19/2002,07/22/2002 Influenza (IM) Preservative Free 04/23/2012 Influenza Split 02/08/2015,04/21/2012 Influenza, Injectable, Mdck, Quadrivalent 01/31/2021 Influenza, Injectable, Quadrivalent 01/09,02/09/2018,02/07/2016,2014 Influenza, Seasonal, Injectable 02/04/2011,02/08,03/20/2006 Influenza, Unspecified 02/25/2023 MMR 05/15/2006 PCV13 01/26/2023,01/26/2020(Deferred: Other) PPSV23 01/26/2020 RZV (SHINGRIX) 03/03/2019, 9,11/04/2018,2018(Deferred: Not available from manager unit) SARS-COV-2 (COVID-19) - MODERNA(Discontinued) 04/03/2021,07/04/2020,06/06/2020,2020 Td (Adult), adsorbed 01/29/2005 Td Preservative Free (TENIVA C, DECAVAC) 11/22/2005 Tdap 10/31/2015 YF 08/19/2002 influenza high dose (65 year s or older) (PF) 02/08/2015 influenza vaccine QV(FLUBLOK ) (18 years or older) (PF) 01/28/2022 influenza vaccine quad (FLUZONE/FLUARIX) (6 months and older)(PF) 03/03/2019,02/13/2014,02/14/2013,2008 Family History Medical History Relation Name Comments Hyperlipidemia Brother Juan Patelcarson Alcohol abuse Father Jack Daniel Hyperlipidemia Father Jack Daniel Hypertension Father Jack Patelcarson Skin cancer Father Jack Daniel Stroke Father Jack Daniel Melanoma Maternal Grandmother Adela Jin 96 Transient ischemic attack Maternal Grandmother Adela R eese Dementia Mother Lucretia Daniel Alcohol abuse Paternal Grandfather Fuad Sanchez, Sr Kidney cancer Sister 1 Marium Jones 45 Breast cancer Sister 2 Scarlet DCIS Relation Name Status Comments Brother Juan Sanchez Alive Father Jack Sanchez Alive Maternal Grandfather Maternal Grandmother Adela Abdi Mother Lucretia Sanchez Other Other Paternal Grandfather Fuad Patelcarson, Sr Paternal Grandmother Sister 1 Marium Jones Alive Sister 2 Scarlet Alive Son Alive Social History Tobacco Use Types Packs/Day Years Used Date Smoking Tobacco: Never Passive Smoke Exposure: Never Smokeless Tobacco: Never Tobacco Cessation:Counseling Given: Not Answered Alcohol Use Standard Drinks/Week Comments Yes 4 (1 standard drink = 0.6 oz pur e alcohol) [facility] Utilities Answer Date Recorded In the past 12 months has e electric, gas, oil, or water company [...] often do you attend chur ch or advent services? Never 07/06/2022 Do you belong to any clubs o r organizations such as scientology groups, unions, fraternal or athletic groups, or [...] and heating? Not hard at all 07/06/2022 [facility] of Occupat ional Health - Occupational Stress [...] Master's degree (e.g., MA, MS, Mayra, MEd, HEAT TREAT FURNACE OPERATOR, CARMINE) 11/01/2018 Sex and Gender Information Value Date Recorded Sex Assigned at Female 08/05/2018 1:06 PM CDT Gender Identity Female 08/05/2018 1:06 PM CDT Sexual Orientation Straight 07/25/2020 4: 24 PM CDT Last Filed Vital Signs Vital Sign Reading Time Taken Comments Blood Pressure 103/66 07/14/2023 7:52 AM MEDICAL OFFICER PSYCHIATRY Pulse 66 07/14/2023 7:52 AM MEDICAL OFFICER PSYCHIATRY Temperature 36.1 ??C (97 ??F) 03/08/2019 10:50 AM CDT Respiratory Rate 14 03/08/2019 10:50 AM CDT Oxygen Saturation 97% 11/06/2018 2:20 PM CDT Inhaled Oxygen Concentration - - Weight 85.9 kg (189 lb 4.2 oz) 07/14/2023 7:52 A M MEDICAL OFFICER PSYCHIATRY Height 167 cm (5' 5.75) 07/14/2023 7:52 AM MEDICAL OFFICER PSYCHIATRY Body Mass Index 30.78 07/14/2023 7:52 AM MEDICAL OFFICER PSYCHIATRY Plan of Treatment Health Maintenance Due Date Last Done Comments CT Colonography 1960 Cologuard 1960 Hepatitis C Screening 1960 Thyroid Stimulating Hormone (TSH) test for thyroid function 1960 Colonoscopy 02/04/2015 02/04/2010 (Perf ormed elsewhere) Colorectal Cancer Surveillance 02/04/2015 Lipid (Cholesterol) Screening 05/20/2021 05/20/2016 (Performed elsewhere), 05/27/2011 (Performed elsewhere) Fasting Glucose for Diabetes Screening 12/14/2021 12/14/2018 Depression Screening (Annual PHQ-2) 05/11/2023 Cervical Cancer Screening 05/29/20242021, 11/25/2011 (Performed elsewhere) Pneumococcal vaccine (0-64 years) (3 of 3 - PPSV23 or PCV20) 01/25/2025 01/26/2023, 01/26/2020 DTaP,Tdap,and Td Vaccines (2 - Td or Tdap) 10/30/2025 10/31/2015, 11/22/2005, 01/29/2005 Hepatitis A Vaccines Completed 01/25/2003, 08/19/2002, 07/22/2002 Zoster Vaccines Completed 03/03/2019, 11/09, 11/04/2018 COVID-19 Vaccine Completed 02/24/2023, , 09/30/2021, Additional history exists Influenza Vaccine Completed 02/25/2023, , 01/31/2021, Additional history exists HPV Vaccines Aged Out No longer eligi ble based on patient's age to complete this topic Medical Devices Implanted Type Area Speeder Worker Device Identifier Shelf Expiration Date Model / [...] Clp Hrzn Ti 24 Clp Nito - [id number] Implanted:Qty: 1 on 11/05/2018 by Deejay Rinaldi M.D. at [facility] Hardware e.g. pins/screws /rods [employer] [id number] / / Mrk Brst Tiss Snm Mri 14ga - [id number] Implanted:Qty: 1 on 09/22/2018 at [facility] Marker Left: Breast C.R.Bard [id number] [id number] / / Misc Other Misc [...] CDT Gary Morales M.D. LAB BLOOD ADD-ON [facility] [address] [place] [phone], [place] from Last 3 Months or Most Recently Relevant to Health Maintenance Advance Directives For more information, please contact: [phone] * Full Code (Latest Code Status on [...]
--- OUTSIDE RECORDS SUMMARY | 2023-10-07 18:47 | XMS_ITS | Encounter Summary ---
Author Organization [facility] Address [address] [place] [address] Care Team Providers Care Cable Repairer Name Role Phone Needs Pcp, Assignment Primary Care Provider Reason for Visit * Reason Comments Foot Problem Encounter Details Date Type Department Care Team ([facility] st Contact Info) Description 06/30/2023 8:00 AM ENERGY PROJECT ENGINEER Therapy [facility] [id number] [place] [phone] [place] [address] [place], [place] [phone] Pain in both feet (Primary Dx) Social History Tobacco Use Types Packs/Day Years Used Date Smoking Tobacco: Never Smokeless Tobacco: Never Sex and Gender Information Value Date Recorded Sex Assigned at Not on file Gender Identity Not on file Sexual Orientation Not on file documented as of this encounter Progress Notes * Jahaira Bunn, PT - 06/30/2023 8:00 AM CST Physical Therapy Progress Note Visit Number: 4 Initial Certification Period: 05/15/2023 to 08/13/23 Referring Provider: Kenneth Roth Visit Diagnosis: 1. Pain in both feet Precautions: None reported SUBJECTIVE: Patient states that she is unsure if there has been much change in her symptoms. Purchased green feet orthotics and tried wearing these. Noticed a little bit more tingling at night on the entire soles of her feet bilaterally. This is more of a painful tingling than anything. Does not go into her calf. OBJECTIVE Current Objective Findings: Joint Mobility: Left: Talocrural WNL Subtalar Hypomobile Midfoot Hypomobile Right: Talocrural WNL Subtalar Hypomobile Midfoot Hypomobile Palpation: tenderness over arch just above heel bilaterally NOT tender over posterior tibialis Treatment/Education Today: Therapeutic exercise x 26 minutes: Update on status and symptoms, HEP performance - long sitting ankle inversion and eversion against blue band 3 x 10 each - heel raise on step with toes in 2 x 10, toes out 2 x 10 Continued to discuss changes in orthotics and symptoms Manual Therapy x 14 minutes: Supine long sitting subtalar lateral glides grade III to improve motion STM medial heel and arch Timed Code Treatment Minutes: 40 Total Treatment Minutes: 40 Current Home Exercise Program List: Access Code: [email or web address] URL: [email or web address] Date: 06/30/2023 Prepared by: Jahaira Bunn Exercises - Arch Lifting - 1 x daily - 7 x weekly - 2 sets - 10 reps - Toe Yoga - Alternating Great Toe and Lesser Toe Extension - 1 x daily - 7 x weekly - 2 sets - 10 reps - Single Leg Stance on Foam Pad - 1 x daily - 7 x weekly - 1 sets - 3 reps - 30s hold - Standing Calf Raise With Small Ball at Heels - 1 x daily - 7 x weekly - 2 sets - 10 reps - Ankle Eversion with Resistance - 1 x daily - 7 x weekly - 1 sets - 10 reps ASSESSMENT/PROGRESS TOWARD GOALS: Patient demonstrates slight improvement in overall pain and function, but less active this time of year compared to the summer. Noted decreased motion into ankle eversion and therefore worked on manual therapy interventions to improve this. Fatigue with heel raises performed today. Remains appropriate for skilled physical therapy interventions for resolution of impairments and better ability to stand for greater period of time. Functional Goals/Outcomes: HEP/Independent Management: Demonstrate independence with HEP and self- management following each treatment session ADL's: Resume previous sleep pattern without awakening due to symptoms in 8-10 weeks. Independently perform ADL's with ease in 4-6 weeks. Ambulation: Ambulate unlimited distances with minimal to no symptoms/limp in 10- 12 weeks. 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 PLAN: Progress functional strength and balance as tolerated GY PROJECT ENGINEER documented in this encounter Plan of Treatment Not on file documented as of this encounter Visit Diagnoses Diagnosis Pain in both feet- Primary Pain in limb documented in this encounter Care Teams Cable Repairer Relationship Specialty Start Date End Date Needs Pcp, [place] [address] PCP - General 12/16/21 documented as of this encounter
--- OUTSIDE RECORDS SUMMARY | 2023-10-07 18:47 | XMS_ITS | Encounter Summary ---
Author Organization [facility] Address [address] [address] Care Team Providers Care Die Stamping Press Operator Name Role Phone Needs Pcp, Assignment Primary Care Provider Encounter Details Date Type Department Care Team (Late st Contact Info) Description 06/30/2023 Notes/Orders [facility] [place] [address] [place], [place] [phone] [place] [address] [place] [address] Social History Tobacco Use Types Packs/Day Years Used Date Smoking Tobacco: Never Smokeless Tobacco: Never Sex and Gender Information Value Date Recorded Sex Assigned at Not on file Gender Identity Not on file Sexual Orientation Not on file documented as of this encounter Progress Notes * Jahaira Bunn PT - 06/30/2023 11:59 PM CST Physical Therapy Discharge Summary Winnie Sanchez has not attended therapy since last documented visit. There are no further visits scheduled at this time and Winnie is currently considered discharged from therapy. Unable to assess current level of function and goals due to unplanned discharge. PT - Discharge Total Visits: 4 Reason for discharge: Patient's progress has plateaued or no longer requires skilled therapy. Please see previous visit documentation of status at last treatment. Jahaira Bunn PT documented in this encounter Plan of Treatment Not on file documented as of this encounter Visit Diagnoses Not on filedocumented in this encounter Care Teams Die Stamping Press Operator Relationship Specialty Start Date End Date Needs Pcp, Assignment [place], [place] [phone] PCP - General 12/16/21 documented as of this encounter
--- OUTSIDE RECORDS SUMMARY | 2023-10-07 18:47 | XMS_ITS | Encounter Summary ---
Author Organization [facility] Address [address] [place] [id number] Care Team Providers Care Manifest/Order Organizer Print Orders Name Role Phone Unavailable Primary Care Provider Unavailabl e Reason for Visit * Reason Onset Date Comments Referral Request 06/25/2023 Encounter Details Date Type Department Care Team (Latest Contact Info) Description 06/25/2023 Clinical Communication Breast [facility] in [place], [place] [address] [place] [address] Leeanna Elizondo, STRUCTURES ASSEMBLER, HAT PARTS CUTTER MACHINE [address] [place] [phone] Referral Request Social History Tobacco Use Types Packs/Day Years Used Date Smoking Tobacco: Never Smokeless Tobacco: Never Alcohol Use Standard Drinks/Week Comments Yes 4 (1 standard drink = 0.6 oz pur e alcohol) [facility] Utilities Answer Date Recorded In the past 12 months has e [employer], gas, oil, or water [employer] threatened to shut off services in your [...] often do you attend chur ch or yarsani services? Never 07/06/2022 Do you belong to any clubs o r organizations such as evangelical groups, unions, [employer] or athletic groups, or school groups? Yes [...] and heating? Not hard at all 07/06/2022 [facility] Occup[facility] ional Health - Occupational Stress [...] your living situation today? I have a [facility] place to live 07/13/2023 Education Answer Date Recorded What is the highest level of school you have completed or the highest degree you have received? Master's degree (e.g., MA, MS, Mayra, MEd, MILITARY TECHNOLOGY MANAGER, CARMINE) 11/01/2018 Sex and Gender Information Value Date Recorded Sex Assigned at Female 08/05/2018 1:06 PM CDT Gender Identity Female 08/05/2018 1:06 PM CDT Sexual Orientation Straight 07/25/2020 4: 24 PM CDT documented as of this encounter Miscellaneous Notes * Telephone Encounter - Gemini Jenkins, C.N.A. - 06/25/2023 3:47 PM PHOTOENGRAVING PHOTOGRAPHER Patient is calling to schedule you and with Theresa Jiménez. Patient is wondering if you could order the PMR THER PT ONC for her to have completed. It has been ordered by the breast clinic in the past. Thank you, Gemini OENGRAVING PHOTOGRAPHER documented in this encounter Plan of Treatment Not on file documented as of this encounter Visit Diagnoses Not on filedocumented in this encounter
--- OUTSIDE RECORDS SUMMARY | 2023-10-07 18:47 | XMS_ITS | Encounter Summary ---
Author Organization [facility] Address [address] [place] [address] Care Team Providers Care Insurance Broker Name Role Phone Unavailable Primary Care Provider Unavailabl e Reason for Visit * Reason Onset Date Comments Pre-visit Intake 07/09/2023 Encounter Details Date Type Department Care Team (Latest Contact Info) Description 07/09/2023 10:30 AM BOTTOM PRESSER Clinical Communication Virtual Review in [place], [place] [address] [place] [address] Pre-visit Intake Social History Tobacco Use Types Packs/Day Years Used Date Smoking Tobacco: Never Passive Smoke Exposure: Never Smokeless Tobacco: Never Tobacco Cessation:Counseling Given: Not Answered Alcohol Use Standard Drinks/Week Comments Yes 4 (1 standard drink = 0.6 oz pur e alcohol) Humiliation, Afraid, Rape, and Kick questionnair e [...] often do you attend chur ch or mosque services? Never 07/06/2022 Do you belong to any clubs o r organizations such as adventism groups, unions, fraternal or athletic groups, or [...] to strenuous exercise (like a brisk walk)? 4 days 07/06/2022 On average, how many minutes do you engage in exercise at this level? 60 min 07/06/2022 Hunger Vital Sign Answer Date Recorded Within the past 12 months, y ou worried that your food would run out before you got the money to buy more. Never true 07/06/19 23 Within the past 12 months, t he food you bought just didn't last and you didn't have money to get more. Never true 07/06/2022 PRAPARE - Transportation Answer Date Re corded In the past 12 months, has l ack of transportation kept you from medical appointments or from getting medications? No 06/12 In the past 12 months, has l ack of transportation kept you from meetings, work, or from getting things needed for daily living? No 07/06/2022 Housing Stability Vital Sign Answer Shamir e Recorded In the last 12 months, was t here a time when you were not able to pay the mortgage or rent on time? No 07/06/2022 In the last 12 months, how many places have you lived? 1 07/06/2022 In the last 12 months, was t here a time when you did not have a steady place to sleep or slept in a long-term (including now)? No 07/06/2022 Nutrition Answer Date Recorded Nutrition: EVOO Fat Source No 07/06 On average, how many serving s of fruits and vegetables do you eat per day (serving size is equal to 1 cup or approximately the size of a tennis ball)? 4-5 07/06/2022 Dental Answer Date Recorded Dental: Regular Dentist Yes 01/28/20 Employment Answer Date Recorded Employment status Employed and actively working without restrictions 07/06/2022 Education Answer Date Recorded What is the highest level of school you have completed or the highest degree you have received? Master's degree (e.g., MA, MS, Mayra, MEd, CARE TRANSITION MGR, CARMINE) 11/01/2018 Sex and Gender Information Value Date Recorded Sex Assigned at Female 08/05/2018 1:06 PM CDT Gender Identity Female 08/05/2018 1:06 PM CDT Sexual Orientation Straight 07/25/2020 4: 24 PM CDT documented as of this encounter Plan of Treatment Not on file documented as of this encounter Visit Diagnoses Not on filedocumented in this encounter
--- OUTSIDE RECORDS SUMMARY | 2023-10-07 18:47 | XMS_ITS | Clinical Summary ---
Author Organization [facility] Address [address] [address] Care Team Providers Care Bundling Machine Operator Name Role Phone Needs Pcp, Assignment Primary Care Provider Source Comments You are receiving this document as you are listed as the primary care provider,follow-up provider, or the patient has been referred to you for consultation.This is in compliance with the Medicare and[facility] Hospital[facility] EHR Incentive Program,which states Providers who transition their patient to another setting of careor provider of care or refers their patient to another provider of care shouldprovide summary care record for each transition of care or referral. [employer] Allergies Active Allergy Reactions Criticality Noted Date Comments Iodine Respiratory Distress High 12/16/2021 Medications Medication Sig Dispensed Refills Start Date End Date Status ALBUTEROL IN Take 90 mcg/oz by mouth daily as needed. Patient taking 2 puff inhaled every 4 hours as needed Active mometasone furoate (ASMANEX) 220 mcg/inhalation inhaler Inhale 2 Puffs daily. Rinse mouth/gargle after use, patient takes 220 MCG inhaled daily for 90 days Active calcium carbonate-vitamin D (OS-KAYLA 500 WITH D) 500-200 MG-UNIT per tablet Take 1 Tablet by mouth daily. Active calcium carbonate (TUMS) 500 MG chewable tablet Chew and swallow 750 mg by mouth daily. Active EPINEPHRINE HCL IN Inject 0.3 mg/day intramuscularly daily. Activ e FLUTICASONE PROPIONATE, INHAL, IN 50 mcg/day by Nasal route daily. Active gabapentin (NEURONTIN) 300 MG capsule Take 300 mg by mouth daily. Patient takes one time at HS daily Active levothyroxine (SYNTHROID) 75 MCG tablet Take 75 mcg by mouth daily. Active MULTIPLE VITAMIN OR Take 1 Tablet by mouth daily. Active Social History Tobacco Use Types Packs/Day Years Used Date Smoking Tobacco: Never Smokeless Tobacco: Never Tobacco Cessation:Counseling Given: Not Answered Sex and Gender Information Value Date Recorded Sex Assigned at Not on file Gender Identity Not on file Sexual Orientation Not on file Plan of Treatment Health Maintenance Due Date Last Done Comments Cervical Cancer Screening Due 1960 Colon Cancer Screening Plan Due 1960 Hep C Screening (Preventive Services) 1958 HIV Screening (Preventive Services) 1974 Adult Preventive Visit 1976 Cholesterol 10/10/2003 Mammogram 08/10/2019 08/09/2018, 07/09, 07/15/2016, Additional history exists DTaP/Tdap/Td (2 - Tdap) 10/30/2025 10/31/2015, 01/29 HepA Aged Out 01/25/2003, 08/09, 07/22/2002 No longer eligible based on patient's age to complete this topic Zoster/Shingles Completed 03/03/2019, 11/09, 11/04/2018, Additional history exists Pneumococcal Aged Out 01/26/2023, 01/26/2020 No lo nger eligible based on patient's age to complete this topic COVID-19 Vaccine Completed 02/24/2023, , 09/30/2021, Additional history exists Influenza Completed 02/25/2023, 01/10, 01/31/2021, Additional history exists HepB Aged Out No longer eligi ble based on patient's age to complete this topic Hib Aged Out No longer eligi ble based on patient's age to complete this topic IPV (Polio) Aged Out No longer eligi ble based on patient's age to complete this topic MCV4 Aged Out No longer eligi ble based on patient's age to complete this topic Procedures Procedure Name Priority Date/Time Associated Diagnosis Comments MM MAMMOGRAM SCREENING BILAT W 3D LATOYA W CAD Routine 08/09/2018 10:14 AM CDT from Last 3 Months or Most Recently Relevant to Health Maintenance Care Teams Bundling Machine Operator Relationship Specialty Start Date End Date Needs Pcp, [place] [address] PCP - General 12/16/21
--- OUTSIDE RECORDS SUMMARY | 2023-10-07 18:47 | XMS_ITS | Clinical Summary ---
Author Organization [facility] Address [place], [place] [address] Care Team Providers Care Programming Instructor Name Role Phone Dann Huffman MD Primary Care Provider [phone] Allergies Active Allergy Reactions Criticality Noted Date Comments House Dust Mite Cough Medium 03/20/2008 Iodine And Iodide Containing Products Dizziness,Dyspnea,*Unknown Low 05/18/2013 Medications Medication Sig Dispensed Refills Start Date End Date Status Mometasone (ASMANEX TWISTHALER) 220 mcg/ actuation (120) inhaler Daily 07/07/2019 Active fluticasone (50 mcg per actuation) nasal solution (FLONASE) 02/14/2020 Active gabapentin (NEURONTIN) 300 mg capsule Bedtime 07/15/2018 Active levothyroxine (SYNTHROID) 75 mcg tablet 01/25/2020 Active multivitamin (MVI) tablet Daily Active albuterol HFA 90 mcg/actuation inhaler 08/08/2019 Active EPINEPHrine (EPIPEN) 0.3 mg/0.3 mL injection Once 07/07/2018 Active Social History Tobacco Use Types Packs/Day Years Used Date Smoking Tobacco: Never Assessed Sex and Gender Information Value Date Recorded Sex Assigned at Not on file Gender Identity Not on file Sexual Orientation Not on file Last Filed Vital Signs Vital Sign Reading Time Taken Comments Blood Pressure 116/75 04/23/2021 2:52 PM ORDERING BOX OPERATOR Pulse 60 04/23/2021 2:52 PM ORDERING BOX OPERATOR Temperature - - Respiratory Rate - - Oxygen Saturation 99% 04/23/2021 2:52 PM ORDERING BOX OPERATOR Inhaled Oxygen Concentration - - Weight 76.7 kg (169 lb 3.2 oz) 02/22/2020 2:07 P M CDT Height - - Body Mass Index - - Plan of Treatment Health Maintenance Due Date Last Done Comments Tdap 1969 Depression screening for age 12+ 1970 HIV for age 15-65 1973 BMI (ht and wt on same day) for age 18+ 1976 Hepatitis C screening for age 18-79 1976 Tetanus booster 1978 Colonoscopy through age 75 10/10/2003 Lipids for age 45-75 10/10/2003 Mammogram for age 45-75 10/10/2003 Zoster (shingles) series for age 50+ (1 of 2) 2008 COVID-19 vaccine series (2 - 2022-24 season) 2023 06/06/2020 Influenza for age 50-64 01/10/2024 Pap test for age 21-65 05/29/2024 , 05/29/2021, 12/02/2017, Additional history exists Pneumococcal series for age 6-64 Aged Out No longer eligible based on patient's age to complete this topic Procedures Procedure Name Priority Date/Time Associated Diagnosis Comments HPV THIN PREP Routine 05/29/2021 9:30 AM ORDERING BOX OPERATOR from Last 3 Months or Most Recently Relevant to Health Maintenance Results * HPV HIGH RISK (05/29/2021 9:30 AM ORDERING BOX OPERATOR) TYPE 16 Negative Negative 05/30/2021 5:37 PM ORDERING BOX OPERATOR [facility] TYPE 18 Negative Negative 05/30/2021 5:37 PM ORDERING BOX OPERATOR [facility] OTHER HIGH RISK TYPES Negative Negative 05/30/2021 5:37 PM ORDERING BOX OPERATOR [facility] Other (Cervical/Vagina l) 05/29/2021 9:30 AM ORDERING BOX OPERATOR 05/30/2021 7:33 AM ORDERING BOX OPERATOR Narrative [facility] 05/30/2021 5:37 PM ORDERING BOX OPERATOR HPV types 16, 18, 31, 33, 35, 39, 45, 51, 52, 56, 58, 59, 66 and 68 DNA were undetectable or below the pre-set threshold. Methodology: [employer] 4800 HPV Test Jessa Castellano MD MICROBIOLOGY [facility] [address] [place] [address], from Last 3 Months or Most Recently Relevant to Health Maintenance Care Teams Programming Instructor Relationship Specialty Start Date End Date Dann Huffman MD [address] [place] [address] PCP - General Internal Medicine 02/22/20
--- NOTE | 2023-10-07 19:00 | CRLHL7_ITS ---
For Patients: As a result of the Century Cures Act, medical imaging exams and procedure reports are released immediately into your electronic medical record. You may view this report before your referring provider. If you have questions, please contact your health care provider. INDICATION: Lumbar stenosis. COMPARISON: None available. TECHNIQUE: Sagittal T1, T2, and STIR sequences. Axial T1 and T2 weighted sequences. FINDINGS: Degenerative grade 1 anterolisthesis of L4 on L5 measures approximately 5 mm. Otherwise, normal alignment. No fractures. No vertebral body loss of height. No evidence injury. No suspicious osseous lesions. Normal conus terminates at L2. Marrow edema of the articular processes of the right L3-4 and left L4-5 facet joints which may be secondary to stress reaction or mild inflammation from facet arthritis. [id number] L1-2: No spinal canal or neural foraminal narrowing. L2-3: Disc degeneration. Diffuse disc bulge eccentric to the left. No narrowing of the spinal canal. No neural foraminal narrowing. L3-4: Disc degeneration. Diffuse disc bulge eccentric to the right. Motor type 1 endplate changes. Mild narrowing of spinal canal. Moderate right neural foraminal narrowing. No narrowing of the left neural foramen. Mild facet arthropathy. L4-5: Grade 1 anterolisthesis. Disc degeneration and unroofed posterior disc bulge. Combined with ligamentum flavum facet hypertrophy, there is moderate severe narrowing of spinal canal. Oblique orientation of the bilateral foramina with mild narrowing. Moderate arthropathy. L5-S1: Disc degeneration diffuse disc bulge eccentric to the left. No narrowing of spinal canal. No impingement of the traversing S1 nerve roots. No narrowing of the right neural foramen. Mild narrowing of the left neural foramen. Mild facet arthropathy. Normal visualized SI joints. IMPRESSION: 1. Degenerative grade 1 anterolisthesis of L4 on L5. Otherwise normal alignment. No fractures. 2. Marrow edema of the articular processes of the right L3-4 and left L4-5 facet joints which may be secondary to stress reaction or mild inflammation 3. Lumbar spondylosis. 4. At L3-4, mild narrowing of the spinal canal. Moderate narrowing of the right neural foramen 5. At L4-5, moderate to severe narrowing of the spinal canal. 6. At L5-S1, mild narrowing of the left neural foramen Dictated by Carlos Goel MD @ 10/08/2023 3:04:23 PM (Electronically Signed)
== END 2023-10-07 18:45 | disposition home or self-care (01) ==
LOC: MRI 18:45
PROVIDERS: PCP Internal Medicine; Visit Provider Family Medicine
DX: M48.061 Spinal stenosis, lumbar region without neurogenic claudication (principal); M51.26 Other intervertebral disc displacement, lumbar region; M51.27 Other intervertebral disc displacement, lumbosacral region
CPT/HCPCS: 72148

== ENCOUNTER 2024-01-29 07:55 | Outpatient (CLI) | payer OTHER, SELFPAY ==
--- OUTSIDE RECORDS SUMMARY | 2024-01-29 07:58 | XMS_ITS | Encounter Summary ---
Author Organization [facility] Address [address] [place] [address] Care Team Providers Care Net Technical Architect Name Role Phone Unavailable Primary Care Provider Unavailabl e Reason for Visit * Reason Onset Date Comments Pre-scheduling Questionnaire 11/09/2023 Encounter Details Date Type Department Care Team (Latest Contact Info) Description 11/09/2023 Clinical Communication Department of Spine in [place], [place] [address] [place] [address] Prescheduling, Provider Pre-scheduling Questionnaire Social History Tobacco Use Types Packs/Day Years Used Date Smoking Tobacco: Never Passive Smoke Exposure: Never Smokeless Tobacco: Never Alcohol Use Standard Drinks/Week Comments Yes 4 (1 standard drink = 0.6 oz pur e alcohol) [facility] Utilities Answer Date Recorded In the past 12 months has [facility] [employer] gas, oil, or water [employer] threatened to shut off services in your [...] How often do you attend chur or nondenominational services? Never 07/06/2022 Do you belong to any clubs o r organizations such as nondenominational groups, unions, fraternal or athletic groups, or [...] and heating? Not hard at all 07/06/2022 [facility] of Occupat ional Health - Occupational Stress [...] your living situation today? I have a [facility] place to live 07/13/2023 Education Answer Date Recorded What is the highest level of school you have completed or the highest degree you have received? Master's degree (e.g., MA, MS, Mayra, MEd, MACHINE ADJUSTER HELPER, CARMINE) 11/01/2018 Sex and Gender Information Value Date Recorded Sex Assigned at Female 08/05/2018 1:06 PM CDT Gender Identity Female 08/05/2018 1:06 PM CDT Sexual Orientation Straight 07/25/2020 4: 24 PM CDT documented as of this encounter Plan of Treatment Not on file documented as of this encounter Visit Diagnoses Not on filedocumented in this encounter
--- OUTSIDE RECORDS SUMMARY | 2024-01-29 07:58 | XMS_ITS | Clinical Summary ---
Author Organization [facility] Address [place], [place] [address] Care Team Providers Care Motel Manager Name Role Phone Dann Huffman MD Primary Care Provider [phone] Allergies Active Allergy Reactions Criticality Noted Date [...] 0.3 mg/0.3 mL injection Once 07/07/2018 Active Active Problems No known active problems Encounters Date Type Department Care Team Description 01/07/2024 8:00 AM CDT Office Visit [facility] [address] [place] [address] Jayden Gastelum MD Consult (Bilateral feet pain, burning and fatigue x 4 years /Pain at its worse 09/17 /Lower lumbar pain /Pain at worse 09/17 /MRI 10/07/23/EMG 10/26/23) 01/07/2024 Travel 11/20/2023 Orders Only [facility] Scanner 1 scan: (1-Ord) INCOMING RECORDS-MRI, [facility], 11/20/2023 from Last 3 Months Social History Tobacco Use Types Packs/Day Years Used Date Smoking Tobacco: Never Smokeless Tobacco: Never Tobacco Cessation:Counseling Given: Yes Alcohol Use Standard Drinks/Week Comments Never 0 (1 standard drink = 0.6 oz pur e alcohol) Social Connections Answer Date Recorded Frequency of Communication with Friends and Fami ly Not on file 01/07/2024 Sex and Gender Information Value Date Recorded Sex Assigned at Not on file Gender Identity Not on file Sexual Orientation Not on file Obstetrics History Last Filed Vital Signs Vital Sign Reading Time Taken Comments Blood Pressure 110/74 01/07/2024 7:58 AM CDT Pulse 87 01/07/2024 7:58 AM CDT Temperature - - Respiratory Rate - - Oxygen Saturation 95% 01/07/2024 7:58 AM CDT Inhaled Oxygen Concentration - - Weight 82.1 kg (181 lb) 01/07/2024 7:58 AM CDT Height - - Body Mass Index - - Plan of Treatment Upcoming Encounters Date Type Department Care Team (Late st Contact Info) Description 01/29/2024 8:20 AM CDT Office Visit [facility] [address] [place] [address] Jayden Gastelum MD [address] [place] [address] Arrived 02/01/2024 2:45 PM CDT Ancillary Procedure [facility] [address] [place] [address] 02/01/2024 3:30 PM CDT Ancillary Procedure [facility] [address] [place] [address] Health Maintenance Due Date Last Done Comments Tdap 1969 Depression screening for age 12+ 1970 HIV for age 15-65 1973 BMI (ht and wt on same day) for age 18+ 1976 Hepatitis C screening for ag e 18-79 1976 Tetanus booster 1978 Colonoscopy through age 75 10/10/2003 Lipids for age 45-75 10/10/2003 Mammogram for age 45-75 10/10/2003 Zoster (shingles) series for age 50+ (1 of 2) 2008 DEXA/DXA scan for age 65+ 10/10/2023 Pneumococcal series for age 65+ (1 of 1 - PCV) 10/10/2023 Influenza for age 65+ 01/10/2024 Pap test for age 21-65 05/29/2024 2, 05/29/2021, 12/02/2017, Additional history exists COVID-19 vaccine series Completed 11/26/19 24, 02/24/2023, 01/28/2022, Additional history exists Procedures Procedure Name Priority Date/Time Associated Diagnosis Comments AMB EPIDURAL STEROID INJECTION Routine 01/29/2024 7:57 AM CDT Spinal stenosis of lumbar region with neurogenic claudication Lumbosacral radiculopathy at L5 Lumbar facet arthropathy Arch pain of right foot Bilateral foot pain Spondylolisthesis of lumbar region Heel pain, bilateral SCAN CORRESP-IMAGING 11/20/2023 12:00 AM CDT HPV HIGH RISK Routine 05/29/2021 9:30 AM SAUSAGE MAKER from Last 3 Months or Most Recently Relevant to Health Maintenance Results * SCAN CORRESP-IMAGING (11/20/2023 12:00 AM CDT) Anatomical Region Laterality Modality Other Scanner OTHER * HPV HIGH RISK (05/29/2021 9:30 AM SAUSAGE MAKER) TYPE 16 Negative Negative 05/30/2021 5:37 PM SAUSAGE MAKER [facility] TYPE 18 Negative Negative 05/30/2021 5:37 PM SAUSAGE MAKER [facility] OTHER HIGH RISK TYPES Negative Negative 05/30/2021 5:37 PM SAUSAGE MAKER [facility] Other (Cervical/Vagina l) 05/29/2021 9:30 AM SAUSAGE MAKER 05/30/2021 7:33 AM SAUSAGE MAKER Narrative [facility] - 05/30/2021 5:37 PM SAUSAGE MAKER HPV types 16, 18, 31, 33, 35, 39, 45, 51, 52, 56, 58, 59, 66 and 68 DNA were undetectable or below the pre-set threshold. Methodology: [employer] 4800 HPV Test Jessa Castellano MD MICROBIOLOGY [facility] [address] [place] [address], from Last 3 Months or Most Recently Relevant to Health Maintenance Care Teams Motel Manager Relationship Specialty Start Date End Date Dann Huffman MD [address] [place] [address] PCP - General Internal Medicine 02/22/20
--- OUTSIDE RECORDS SUMMARY | 2024-01-29 07:58 | XMS_ITS ---
Author Organization [facility] Address [address] [place] [address] Care Team Providers Care Hog Ringer Name Role Phone Unavailable Primary Care Provider [...] treatments are documented for this patient in [facility]. Treatments may have been administered in another system. 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 Your Survivorship Care Plan Provided on 01/26/2020 General Information Patient name Winnie Sanchez (home) [phone] (work) Date of 1960 Introduction This is your personal survivorship care plan. It is both a summary of your treatment history as well as a follow-up plan to guide you through the management of your continued medical care. The plan was developed by a multidisciplinary team of [facility] cancer providers to help you understand, discuss, [...] Morales MD. (Medical Oncology) Lidya Good APRN, POLYMERIZATION ENGINEER. (Breast Clinic) Raina Szymanski, MS, [facility] (Genetic Counselor) Cancer Diagnosis and Staging Information [...] The tumor size was 1.4 cm and ER/DC were positive and HER2 negative. She had [...] proven to be invasive ductal, intermediate grade, ER/DC positive, and HER2 negative with a Ki-67 [...] are largely based on guidelines from the [place] [employer] of Clinical Oncology (ASCO), the biggest [...] your life, including relationships, school, work, and assisted plans. Anger is a normal response to [...] you, such as physical therapists, occupational therapists, student life vice president, or mental health care providers Coping With [...] spiritual framework. -Talk with your spiritual or group leader to help guide you through some of the questions raised by your illness. -Consider using the [employer] staff at [facility] to help you with your spiritual questions. [...] fat tissue -Talking to a dietitian or package reinspector who can help you plan a healthy [...] care provider to refer you to a [facility] psychiatric social worker supervisor. He or shecan give you workplace information. [...] a disability to have equal opportunities. A psychiatric social worker supervisor can help you look at your situation [...] your doctor to help you quit. The [facility] can help. Stress management [...]
--- OUTSIDE RECORDS SUMMARY | 2024-01-29 07:58 | XMS_ITS | Encounter Summary ---
Author Organization [facility] Address [address] [place] [address] Care Team Providers Care Supervisor Cartography Name Role Phone Unavailable Primary Care Provider Unavailabl e Reason for Referral * Outpatient (Routine) - Closed Specialty Diagnoses / Procedures Referred By Danielito modi Referred To Contact Diagnoses Pain Joint Foot Bilateral Procedures EMG Georgina Barragan M.D. [address] [place] [address] [facility] Referral ID Status Reason Start Date Expiration Date Visits Re quested Visits Authorized [id number] Closed 10/14/2023 10/13/2024 1 1 Reason for Visit * Outpatient (Routine) - Closed Specialty Diagnoses / Procedures Referred By Danielito modi Referred To Contact Diagnoses Pain Joint Foot Bilateral Procedures EMG Georgina Barragan M.D. [address] [place] [address] [facility] Referral ID Status Reason Start Date Expiration Date Visits Re quested Visits Authorized [id number] Closed 10/14/2023 10/13/2024 1 1 Encounter Details Date Type Department Care Team (Latest Contact Info) Description 10/26/2023 1:56 PM CDT - 10/26/2023 11:59 PM CDT Hospital Encounter Department of Neurology in [place], [place] [address] [place] [address] Georgina Barragan M.D. [address] [place] [address] Pain Joint Foot Bilateral Discharge Disposition: Home or Self Care Social History Tobacco Use Types Packs/Day Years Used Date Smoking Tobacco: Never Passive Smoke Exposure: Never Smokeless Tobacco: Never Alcohol Use Standard Drinks/Week Comments Yes 4 (1 standard drink = 0.6 oz pur e alcohol) [facility] Utilities Answer Date Recorded In the [...] often do you attend chur ch or shinto services? Never 07/06/2022 Do you belong to any clubs o r organizations such as mormon groups, unions, fraternal or athletic groups, or [...] and heating? Not hard at all 07/06/2022 [facility] of Occupat ional Health - Occupational Stress [...] your living situation today? I have a [facility] place to live 07/13/2023 Education Answer Date Recorded What is the highest level of school you have completed or the highest degree you have received? Master's degree (e.g., MA, MS, Mayra, MEd, DIMETHYLANILINE SULFATOR OPERATOR, CARMINE) 11/01/2018 Sex and Gender Information Value Date Recorded Sex Assigned at Female 08/05/2018 1:06 PM CDT Gender Identity Female 08/05/2018 1:06 PM CDT Sexual Orientation Straight 07/25/2020 4: 24 PM CDT documented as of this encounter Medications at Time of Discharge Medication Sig Dispensed Refills Start Date End Date acetaminophen (TYLENOL) 500 mg tablet Take 2 tablets (1,000 mg total) by mouth 4 (four) times a day. 0 11/06/2018 albuterol (PROVENTIL HFA,VENTOLIN HFA) 90 mcg/actuation inhaler Inhale 1 puff 4 (four) times a day as needed for shortness of breath. 05/11/2004 calcium carbonate (TUMS E-X) 750 mg (300 mg calcium) chewable tablet Chew 1 tablet as needed. calcium carbonate-vitamin D3 1,250 mg (500 mg calcium)-5 mcg (200 Unit) per tablet Take 1 tablet by mouth daily. EPINEPHrine 0.1 mg/0.1 mL auto-injector as needed. 05/11/2014 fluticasone propionate (FLONASE) 50 mcg/actuation nasal spray Administer 2 sprays into each nostril daily. 1 06/24/2018 gabapentin (NEURONTIN) 300 mg capsule Take 2 capsules by mouth at bedtime. 05/26/2022 ibuprofen (ADVIL,MOTRIN) 200 mg tablet Take 2 tablets by mouth daily as needed for pain. 08/29/2015 levothyroxine (SYNTHROID, LEVOTHROID) 75 mcg tablet Take 75 mcg by mouth every morning before breakfast. 3 07/15/2018 mometasone (ASMANEX) 220 mcg/ actuation (30) inhaler Inhale 1 puff at bedtime. 05/11/2008 montelukast (SINGULAIR) 10 mg tablet Take 10 mg by mouth at bedtime. 04/30/2023 multivitamin capsule Take 1 tablet by mouth daily. 03/21/2008 naproxen sodium (ALEVE/ANAPROX) 220 mg tablet Take 220 mg by mouth as needed. documented as of this encounter Plan of Treatment Not on file documented as of this encounter Procedures Procedure Name Priority Date/Time Associated Diagnosis Comments EMG Routine 10/26/2023 1:56 PM CDT Pain Joint Foot Bilateral documented in this encounter Results * EMG (10/26/2023 1:56 PM CDT) 10/26/2023 2:30 PM CDT Narrative [facility] EMG - 10/26/2023 4:12 PM CDT Table formatting from the original result was not included. 26-Oct-2023 ? Electromyography ? Final Report Study Number: 1 EMG Learning And Development Consultant: Cali Bee 127 or [phone] Referred by: GEORGINA BARRAGAN () Referred for: pn Referral Code: ?200 ??330 RX: 001 SUMMARY: Prior to starting the procedure, the patient's identity was verified, pertinent available records were reviewed, the nature of the procedure was explained, the appropriate sites of the exam were confirmed directly with the patient, and a pre-procedure pause was performed for final verification of all of the above. ?? Nerve conduction studies in the left lower limb were normal for age. ??Needle EMG in the left lower limb was also unremarkable. CLINICAL INTERPRETATION: Normal study. ??There is no electrophysiologic evidence of a large fiber peripheral neuropathy or a left lumbosacral radiculopathy. Paris Bee (127 or [phone])/ACV NERVE CONDUCTIONS ??Record Rep ?? Normal ??Normal Distal Normal F-Wave F-Wave Temp Nerve Type Site Stim Side Amp Amp CV CV Lat Lat Lat Est (??C) Fibular Motor EDB ??L 3.3 (> 2.0) 45 (> 41) 4.7 (< 6.6) 48.8 52.7 30.0 Tibial Motor AH ??L 5.4 (> 4.0) 46 (> 40) 4.3 (< 6.1) 52.8 51.5 30.5 Sural Sensory Ankle ??L 10 (> 0.0) 45 (> 40) 4.1 (< 4.5) ?? 30.6 NEEDLE EMG ??Ins Spont ??MUP ??Recruitment ??Duration ??Amplitude ??Phases ?? Muscle Side Act Fib Fasc Normal Activ Reduced Rapid Long Short High Low % Turns Gluteus tk L NL 0 0 NL ? Tensor fasciae latae L NL 0 0 NL ? Biceps femoris (long head) L NL 0 0 NL ? Vastus medialis L NL 0 0 NL ? Gastrocnemius (medial head) L NL 0 0 NL ? Tibialis anterior L NL 0 0 NL ? Peroneus tertius L NL 0 0 NL ? This interpretation has been electronically signed: Cali Bee M.D. at 10/26/2023 3:38:54 PM CDT Procedure Note Cali Bee M.D. - 10/26/2023 26-Oct-2023 Electromyography Final Report Study Number: 1 EMG Learning And Development Consultant: Cali Bee 127 or [phone] Referred by: GEORGINA BARRAGAN () Referred for: pn Referral Code: 200 330 RX: 001 SUMMARY: Prior to starting the procedure, the patient's identity wasverified, pertinent available records were reviewed, the nature of theprocedure was explained, the appropriate sites of the exam were confirmeddirectly with the patient, and a pre-procedure pause was performed forfinal verification of all of the above. Nerve conduction studies in the left lower limb were normal for age.Needle EMG in the left lower limb was also unremarkable. CLINICAL INTERPRETATION: Normal study. There is no electrophysiologicevidence of a large fiber peripheral neuropathy or a left lumbosacralradiculopathy. Paris Bee (127 or [phone])/ACV NERVE CONDUCTIONS Record Rep Normal Normal Distal Normal F-Wave F-Wave Temp Nerve Type Site Stim Side Amp Amp CV CV Lat Lat Lat Est (??C) Fibular Motor EDB L 3.3 (> 2.0) 45 (> 41) 4.7 (< 6.6) 48.8 52.7 30.0 Tibial Motor AH L 5.4 (> 4.0) 46 (> 40) 4.3 (< 6.1) 52.8 51.5 30.5 Sural Sensory Ankle L 10 (> 0.0) 45 (> 40) 4.1 (< 4.5) 30.6 NEEDLE EMG Ins Spont MUP Recruitment Duration Amplitude Phases Muscle Side Act Fib Fasc Normal Activ Reduced Rapid Long Short High Low %Turns Gluteus tk L NL 0 0 NL Tensor fasciae latae L NL 0 0 NL Biceps femoris (long head) L NL 0 0 NL Vastus medialis L NL 0 0 NL Gastrocnemius (medial head) L NL 0 0 NL Tibialis anterior L NL 0 0 NL Peroneus tertius L NL 0 0 NL This interpretation has been electronically signed: Cali Bee M.D. at 10/26/2023 3:38:54 PM CDT Georgina Barragan M.D. NEUROLOGY ORDERABL ES EMG documented in this encounter Visit Diagnoses Diagnosis Pain Joint Foot Bilateral documented in this encounter
--- OUTSIDE RECORDS SUMMARY | 2024-01-29 07:58 | XMS_ITS | Clinical Summary ---
Author Organization [facility] Address [address] [place] [address] Care Team Providers Care Fish Farm Laborer Name Role Phone Unavailable Primary Care Provider Unavailabl e Source Comments Patient records contain information from all sites at [facility]. For routine questions regarding patient records, call [phone] during business hours, M-F 8:00 AM - 5:00 PM Central Time. Record requests for emergency care only can be directed to [phone] at any time.[facility] Allergies Active Allergy Reactions Criticality Noted Date Comments House Dust Mite Cough Medium 03/20/2008 Iodine Shortness of breath (Reselect Reaction) Medium 05/18/2013 Iodine And Iodide Containing Products Shortness of breath (Reselect Reaction),Other (see comments) Medium 05/11/2014 Mold Rash Medium [address] [place] mold per patient Medications Medication Sig Dispensed [...] Encounters Date Type Department Care Team Description 12/04/2023 Orders Only Department of Neurologic Surgery in [place], [place] [address] [place] [address] Wendy Bonds, HERNANDO, C.N.P. Pain Back (Primary Dx) 11/11/2023 Clinical Communication Department of Spine in [place], [place] [address] [place] [phone] Provider, Unknown OSM (SPN/) 11/09/2023 Clinical Communication Department of Spine in [place], [place] [address] [place] [phone] Prescheduling, Provider Pre-scheduling Questionnaire from Last 3 Months Immunizations Name Administration Dates Next Due H1N1 All Forms 04/24/2009 HepA / HepB 01/25/2003,08/19/2002,07/22/2002 Influenza Split 02/08/2015,04/21/2012 Influenza, Injectable, Mdck, Quadrivalent 01/31/2021 Influenza, Injectable, Quadrivalent 01/09,02/09/2018,02/07/2016,2014 Influenza, Seasonal, Injectable 02/04/2011,02/08,03/20/2006 Influenza, Unspecified 02/25/2023 MMR 05/15/2006 PCV13 01/26/2023,01/26/2020(Deferred: Other) PPSV23 01/26/2020 RZV (SHINGRIX) 03/03/2019, 9,11/04/2018,2018(Deferred: Not available from tire bagger) SARS-COV-2 (COVID-19) - MODERNA(Discontinued) 04/03/2021,07/04/2020,06/06/2020,2020 Td (Adult), adsorbed 01/29/2005 Td Preservative Free (TENIVA C, DECAVAC) 11/22/2005 Tdap 10/31/2015 YF 08/19/2002 influenza trivalent high dos e (HD)(PF) 02/08/2015 influenza trivalent vaccine (6 months and older)(PF) 04/23/2012 influenza vaccine QV(FLUBLOK ) (18 years or older) (PF) 01/28/2022 influenza vaccine quad (FLUZONE/FLUARIX) (6 months and older)(PF) 03/03/2019,02/13/2014,02/14/2013,2008 Family History Medical History Relation Name Comments Hyperlipidemia Brother Juan Sanchez Alcohol abuse Father Jack Sanchez Hyperlipidemia Father Jack Sanchez Hypertension Father Jack Sanchez Skin cancer Father Jack Sanchez Stroke Father Jack Sanchez Melanoma Maternal Grandmother Adela Abdi 96 Transient ischemic attack Maternal Grandmother Adela orlando Dementia Mother Lucretia Daniel Alcohol abuse Paternal Grandfather Fuad Daniel, Sr Kidney cancer Sister 1 Marium Jones 45 Breast cancer Sister 2 Scarlet DCIS Relation Name Status Comments Brother Juan Sanchez Alive Father Jack Sanchez Alive Maternal Grandfather Maternal Grandmother Adela Abdi Mother Lucretiaaltagracia Sanchez Other Other Paternal Grandfather Fuad Daniel, Sr Paternal Grandmother Sister 1 Marium Jones Alive Sister 2 Scarlet Alive Son Alive Social History Tobacco Use Types Packs/Day Years Used Date Smoking Tobacco: Never Passive Smoke Exposure: Never Smokeless Tobacco: Never Tobacco Cessation:Counseling Given: Not Answered Alcohol Use Standard Drinks/Week Comments Yes 4 (1 standard drink = 0.6 oz pur e alcohol) [facility] [employer] Answer Date Recorded In the past 12 months has e [employer], [employer], oil, or water [employer] threatened to shut off services in your [...] How often do you attend chur or jainism services? Never 07/06/2022 Do you belong to any clubs o r organizations such as sabianist groups, unions, fraternal or athletic groups, or [...] and heating? Not hard at all 07/06/2022 [facility] of Occupat ional [facility] - Occupational Stress Questionnaire Answer Date Recorded [...] Master's degree (e.g., MA, MS, Mayra, MEd, WIND SITE MANAGER, CARMINE) 11/01/2018 Sex and Gender Information Value Date Recorded Sex Assigned at Female 08/05/2018 1:06 PM CDT Gender Identity Female 08/05/2018 1:06 PM CDT Sexual Orientation Straight 07/25/2020 4: 24 PM CDT Last Filed Vital Signs Vital Sign Reading Time Taken Comments Blood Pressure 103/66 07/14/2023 7:52 AM FUR GRADER Pulse 66 07/14/2023 7:52 AM FUR GRADER Temperature 36.1 ??C (97 ??F) 03/08/2019 10:50 AM CDT Respiratory Rate 14 03/08/2019 10:50 AM CDT Oxygen Saturation 97% 11/06/2018 2:20 PM CDT Inhaled Oxygen Concentration - - Weight 85.9 kg (189 lb 4.2 oz) 07/14/2023 7:52 A M FUR GRADER Height 167 cm (5' 5.75) 07/14/2023 7:52 AM FUR GRADER Body Mass Index 30.78 07/14/2023 7:52 AM FUR GRADER Plan of Treatment Health Maintenance Due Date Last Done Comments Bone Density Scan (Osteoporosis Screen) 1960 CT Colonography 1960 Cologuard 1960 Hepatitis C Screening 1960 Thyroid Stimulating Hormone (TSH) test for thyroid function 1960 Colonoscopy 02/04/2015 02/04/2010 (Perf ormed elsewhere) Colorectal Cancer Surveillance 02/04/2015 Fasting Glucose for Diabetes Screening 12/14/2021 12/14/2018 Depression Screening (Annual PHQ-2) 05/11/2023 Fall Risk Screen (Annual) 10/10/2023 COVID-19 Vaccine ( season) 2024 02/24/2023, 01/28/2022, 09/30/2021, Additional history exists Influenza Vaccine (#1) 2024 , 01/28/2022, 01/31/2021, Additional history exists Cervical Cancer Screening 05/29/20242021, 11/25/2011 (Performed elsewhere) Pneumococcal vaccine (65+ years) (3 of 3 - PPSV23 or PCV20) 01/25/2025 01/26/2023, 01/26/2020 DTaP,Tdap,and Td Vaccines (2 - Td or Tdap) 10/30/2025 10/31/2015, 11/22/2005, 01/29/2005 Hepatitis A Vaccines Completed 01/25/2003, 08/19/2002, 07/22/2002 Hepatitis B Vaccines Completed 01/25/2003, 08/19/2002, 07/22/2002 Zoster Vaccines Completed 03/03/2019, 11/09, 11/04/2018 HPV Vaccines Aged Out No longer eligi ble based on patient's age to complete this topic Medical Devices Implanted Type Area Legal Archivist Device Identifier Shelf Expiration Date Model / [...] Clp Hrzn Ti 24 Clp Nito - [id number] Implanted:Qty: 1 on 11/05/2018 by Deejay Rinaldi M.D. at [facility] Hardware e.g. pins/screws /rods [employer] [id number] / / Mrk Brst Tiss Sn Mri 14ga - [id number] Implanted:Qty: 1 on 09/22/2018 at [facility] [employer] Marker Left: Breast C.R.Bard [id number] / / Misc Other Misc Other Tooth Procedures Procedure Name Priority Date/Time Associated Diagnosis Comments COMPREHENSIVE METABOLIC PANEL, S/P Routine 12/14/2018 10:18 AM CDT Malignant Neoplasm Of Breast Female Left (HCC) from Last 3 Months or Most Recently Relevant to Health Maintenance Results * Comprehensive Metabolic Panel (12/14/2018 10:18 AM CDT) [facility] Potassium, S 4.4 3.6 - 5.2 mmol/L [...] CDT Gary Morales M.D. LAB BLOOD ADD-ON [facility] [address] [place] [id number] from Last 3 Months or Most Recently Relevant to Health Maintenance Advance Directives For more information, please contact: [phone] * Full Code (Latest Code Status on [...]
--- OUTSIDE RECORDS SUMMARY | 2024-01-29 07:58 | XMS_ITS | Referral Summary ---
Author Organization [facility] Address [address] [place] [address] Care Team Providers Care Load Out Worker Name Role Phone Unavailable Primary Care Provider Unavailabl e Source Comments Patient records contain information from all sites at [facility]. For routine questions regarding patient records, call [phone] during business hours, M-F 8:00 AM - 5:00 PM Central Time. Record requests for emergency care only can be directed to [phone] at any time.[facility] Encounters Date Type Department Care Team Description 12/04/2023 Orders Only Department of Neurologic Surgery in [place], [place] [address] [place] [address] Wendy Bonds APRN, C.N.P. Pain Back (Primary Dx) 11/11/2023 Clinical Communication Department of Spine in [place], [place] [address] [place] [address] Provider, Unknown OSM (SPN/) 11/09/2023 Clinical Communication Department of Spine in [place], [place] [address] [place] [phone] Prescheduling, Provider Pre-scheduling Questionnaire from Last 3 Months Allergies Active Allergy Reactions Criticality Noted Date Comments House Dust Mite Cough Medium 03/20/2008 Iodine Shortness of breath (Reselect Reaction) Medium 05/18/2013 Iodine And Iodide Containing Products Shortness of breath (Reselect Reaction),Other (see comments) Medium 05/11/2014 Mold Rash Medium 1980 [place] mold per patient Medications Medication Sig Dispensed [...] RZV (SHINGRIX) 03/03/2019, 9,11/04/2018,2018(Deferred: Not available from automotive brake specialist) SARS-COV-2 (COVID-19) - MODERNA(Discontinued) 04/03/2021,07/04/2020,06/06/2020,2020 Td (Adult), [...] drink = 0.6 oz pur e alcohol) [facility] Utilities Answer Date Recorded In the past 12 months has e [employer], gas, oil, or water [employer] threatened to shut off services in your [...] often do you attend chur ch or adventist services? Never 07/06/2022 Do you belong to any clubs o r organizations such as moravian groups, unions, fraternal or athletic groups, or [...] and heating? Not hard at all 07/06/2022 [facility] of Occupat ional Health - Occupational Stress [...] your living situation today? I have a [facility] place to live 07/13/2023 Education Answer Date Recorded What is the highest level of school you have completed or the highest degree you have received? Master's degree (e.g., MA, MS, Mayra, MEd, HEAD INSPECTOR, CARMINE) 11/01/2018 Sex and Gender Information Value Date Recorded Sex Assigned at Female 08/05/2018 1:06 PM CDT Gender Identity Female 08/05/2018 1:06 PM CDT Sexual Orientation Straight 07/25/2020 4: 24 PM CDT Last Filed Vital Signs Vital Sign Reading Time Taken Comments Blood Pressure 103/66 07/14/2023 7:52 AM PROGRAM MANAGEMENT ANALYST Pulse 66 07/14/2023 7:52 AM PROGRAM MANAGEMENT ANALYST Temperature 36.1 ??C (97 ??F) 03/08/2019 10:50 AM CDT Respiratory Rate 14 03/08/2019 10:50 AM CDT Oxygen Saturation 97% 11/06/2018 2:20 PM CDT Inhaled Oxygen Concentration - - Weight 85.9 kg (189 lb 4.2 oz) 07/14/2023 7:52 A M PROGRAM MANAGEMENT ANALYST Height 167 cm (5' 5.75) 07/14/2023 7:52 AM PROGRAM MANAGEMENT ANALYST Body Mass Index 30.78 07/14/2023 7:52 AM PROGRAM MANAGEMENT ANALYST Plan of Treatment Not on file Medical Devices Implanted Type Area Scholastic Aptitude Test Grader Device Identifier Shelf Expiration Date Model / [...] Clp Hrzn Ti 24 Clp Nito - [id number] Implanted:Qty: 1 on 11/05/2018 by Deejay Rinaldi M.D. at [facility] Hardware e.g. pins/screws /rods Breast [employer] [id number] / / Mrk Brst Tiss Sn Mri 14ga - [id number] Implanted:Qty: 1 on 09/22/2018 at [facility] Marker Left: Breast C.R.Bard [id number] / / Misc Other Misc Other Tooth Procedures Procedure Name Priority Date/Time Associated Diagnosis Comments COMPREHENSIVE METABOLIC PANEL, S/P Routine 12/14/2018 10:18 AM CDT Malignant Neoplasm Of Breast Female Left (HCC) from Last 3 Months or Most Recently Relevant to Health Maintenance Results * Comprehensive Metabolic Panel (12/14/2018 10:18 AM CDT) Pathologist [facility] Potassium, S 4.4 3.6 - [...] CDT Gary Morales M.D. LAB BLOOD ADD-ON [facility] [address] [place] [address], [facility] from Last 3 Months or Most Recently Relevant to Health Maintenance Advance Directives For more information, please contact: [phone] * Full Code (Latest Code Status on [...]
--- OUTSIDE RECORDS SUMMARY | 2024-01-29 07:58 | XMS_ITS | Encounter Summary ---
Author Organization [facility] Address [address] [place] [address] Care Team Providers Care Lead Instructor/Flight Attendant Name Role Phone Unavailable Primary Care Provider Unavailabl e Reason for Referral * Outpatient (Routine) - Authorized Specialty Diagnoses / Procedures Referred By Danielito modi Referred To Contact Diagnoses Pain Back Procedures DX Lumbar Spine 4+ Views Wendy Bonds APRN, C.N.P. [address] [place] [phone] [facility] Referral ID Status Reason Start Date Expiration Date V isits Requested Visits Authorized [id number] Authorized 12/04/2023 12/03/2024 1 1 Encounter Details Date Type Department Care Team (Late st Contact Info) Description 12/04/2023 Orders Only Department of Neurologic Surgery in [place], [place] [address] [place] [phone] Wendy Bonds APRN, C.N.P. [address] [place] [phone] Pain Back (Primary Dx) Social History Tobacco Use Types Packs/Day Years Used Date Smoking Tobacco: Never Passive Smoke Exposure: Never Smokeless Tobacco: Never Alcohol Use Standard Drinks/Week Comments Yes 4 (1 standard drink = 0.6 oz pur e alcohol) [facility] Utilities Answer Date Recorded In the [...] often do you attend chur ch or sikhism services? Never 07/06/2022 Do you belong to [...] and heating? Not hard at all 07/06/2022 [facility] of Occupat ional Health - Occupational Stress [...] money to buy more. Never true 07/13/19 Within the past 12 months, t he [...] Master's degree (e.g., MA, MS, Mayra, MEd, INTERNET PROGRAMMER, CARMINE) 11/01/2018 Sex and Gender Information Value Date Recorded Sex Assigned at Female 08/05/2018 1:06 PM CDT Gender Identity Female 08/05/2018 1:06 PM CDT Sexual Orientation Straight 07/25/2020 4: 24 PM CDT documented as of this encounter Plan of Treatment Scheduled Orders Name Type Priority Associated Diagnoses Orde r Schedule DX Lumbar Spine 4+ Views Imaging RAD - Routine (most inpatients and all outpatients) Pain Back Expected: 12/04/2023 (Approximate), Expires: 12/03/2024 documented as of this encounter Visit Diagnoses Diagnosis Pain Back- Primary documented in this encounter
--- OUTSIDE RECORDS SUMMARY | 2024-01-29 07:58 | XMS_ITS | Encounter Summary ---
Author Organization [facility] Address [address] [place] [address] Care Team Providers Care Public Address System Operator Name Role Phone Unavailable Primary Care Provider Unavailabl e Reason for Visit * Reason Onset Date Comments [facility] 11/11/2023 SPN Encounter Details Date Type Department Care Team (Late st Contact Info) Description 11/11/2023 Clinical Communication Department of Spine in [place], [place] [address] [place] [phone] Provider, Unknown [facility] (SPN/) Social History Tobacco Use Types Packs/Day Years Used Date Smoking Tobacco: Never Passive Smoke Exposure: Never Smokeless Tobacco: Never Alcohol Use Standard Drinks/Week Comments Yes 4 (1 standard drink = 0.6 oz pur e alcohol) [facility] Utilities Answer Date Recorded In the past 12 months has [facility] [employer], gas, oil, or water [employer] threatened to shut off services in your [...] How often do you attend chur or bahai services? Never 07/06/2022 Do you belong to [...] and heating? Not hard at all 07/06/2022 [facility] of Occupat ional Health - Occupational [...] your living situation today? I have a [facility] place to live 07/13/2023 Education Answer Date Recorded What is the highest level of school you have completed or the highest degree you have received? Master's degree (e.g., MA, MS, Mayra, MEd, SPECIAL EFFECTS TECHNICIAN, CARMINE) 11/01/2018 Sex and Gender Information Value Date Recorded Sex Assigned at Female 08/05/2018 1:06 PM CDT Gender Identity Female 08/05/2018 1:06 PM CDT Sexual Orientation Straight 07/25/2020 4: 24 PM CDT documented as of this encounter Plan of Treatment Not on file documented as of this encounter Visit Diagnoses Not on filedocumented in this encounter
--- OUTSIDE RECORDS SUMMARY | 2024-01-29 07:58 | XMS_ITS ---
Author Organization [facility] Address [address] [place] [address] Care Team Providers Care Commercial Green Building Architect Name Role Phone Unavailable Unavailable Unavailable Surgery Details Not on file Complications Check Surgery Details section. Procedure Estimated Blood Loss Check Surgery Details section. Procedure Findings Check Surgery Details section. Procedure Specimens Taken Check Surgery Details section.
--- OUTSIDE RECORDS SUMMARY | 2024-01-29 07:58 | XMS_ITS | Clinical Summary ---
Author Organization [facility] Address [address] [place] [address] Care Team Providers Care Log Rafter Name Role Phone Needs Pcp, Assignment Primary Care Provider Source Comments You are receiving this document as you are listed as the primary care provider,follow-up provider, or the patient has been referred to you for consultation.This is in compliance with the Medicare andThe [facility] EHR Incentive Program,which states Providers who transition their patient to another setting of careor provider of care or refers their patient to another provider of care shouldprovide summary care record for each transition of care or referral. Aiming Allergies Active Allergy Reactions Criticality Noted Date [...] 1958 Hep C Screening (Preventive Services) 1960 MTM Covered 1958 Adult Preventive Visit 1976 Cholesterol 10/10/2003 Mammogram 08/10/2019 08/09/2018, 07/09, 07/15/2016, Additional history exists COVID-19 Vaccine ( season) 2024 02/24/2023, 01/28/2022, 09/30/2021, Additional history exists Influenza (#1) 2024 02/25/2023, 01/10, 01/31/2021, Additional history exists DTaP/Tdap/Td (2 - Tdap) 10/30/2025 10/31/2015, 01/29 Pneumococcal 65+ Yrs (3 - PPSV23 or PCV20) 01/27/2028 01/26/2023, 01/26/2020 RSV (1 - 1-dose 75+ series) 2033 HepA Aged Out 01/25/2003, 08/09, 07/22/2002 No longer eligible based on patient's age to complete this topic Zoster/Shingles Completed 03/03/2019, 11/09, 11/04/2018, Additional history exists HepB Aged Out No [...] on patient's age to complete this topic Care Teams Log Rafter Relationship Specialty Start Date End Date Needs Pcp, [place] [address] PCP - General 12/16/21
== END 2024-01-29 07:56 | disposition home or self-care (01) ==
LOC: INJ CL 07:56
PROVIDERS: PCP Internal Medicine; Visit Provider Family Medicine
DX: M54.16 Radiculopathy, lumbar region (principal); M51.36 Other intervertebral disc degeneration, lumbar region
CPT/HCPCS: 62323; J0702

== ENCOUNTER 2024-02-19 07:50 | Outpatient (CLI) | payer OTHER, SELFPAY ==
--- OUTSIDE RECORDS SUMMARY | 2024-02-19 13:37 | XMS_ITS | Referral Summary ---
Author Organization [facility] Address [address] [place] [address] Care Team Providers Care Bellman Name Role Phone Unavailable Primary Care Provider Unavailabl e Source Comments Patient records contain information from all sites at [facility]. For routine questions regarding patient records, call [phone] during business hours, M-F 8:00 AM - 5:00 PM Central Time. Record requests for emergency care only can be directed to [phone] at any time.[facility] Encounters Date Type Department Care Team Description 12/04/2023 Orders Only Department of Neurologic Surgery in [place], [place] [address] [place] [phone] Wendy Bonds APRN, C.N.P. Pain Back (Primary Dx) from Last 3 Months Allergies Active Allergy Reactions Criticality Noted Date Comments House Dust Mite Cough Medium 03/20/2008 Iodine Shortness of breath (Reselect Reaction) Medium 05/18/2013 Iodine And Iodide Containing Products Shortness of breath (Reselect Reaction),Other (see comments) Medium 05/11/2014 Mold Rash Medium 1980 [place] mold per patient Medications Medication Sig Dispensed [...] RZV (SHINGRIX) 03/03/2019, 9,11/04/2018,2018(Deferred: Not available from feed research technician) SARS-COV-2 (COVID-19) - MODERNA(Discontinued) 04/03/2021,07/04/2020,06/06/2020,2020 Td (Adult), [...] drink = 0.6 oz pur e alcohol) [facility] Utilities Answer Date Recorded In the past 12 months has e [employer], [address], or water [employer] threatened to shut off services in your [...] How often do you attend chur or protestant services? Never 07/06/2022 Do you belong to any clubs o r organizations such as spiritism groups, unions, fraternal or athletic groups, or [...] and heating? Not hard at all 07/06/2022 [facility] of Occupat ional Health - Occupational [...] your living situation today? I have a [facility] place to live 07/13/2023 Education Answer Date Recorded What is the highest level of school you have completed or the highest degree you have received? Master's degree (e.g., MA, MS, Mayra, MEd, PRECIPITATE WASHER, CARMINE) 11/01/2018 Sex and Gender Information Value Date Recorded Sex Assigned at Female 08/05/2018 1:06 PM CDT Gender Identity Female 08/05/2018 1:06 PM CDT Sexual Orientation Straight 07/25/2020 4: 24 PM CDT Last Filed Vital Signs Vital Sign Reading Time Taken Comments Blood Pressure 103/66 07/14/2023 7:52 AM TEXTILE CONVERSION MANAGER Pulse 66 07/14/2023 7:52 AM TEXTILE CONVERSION MANAGER Temperature 36.1 ??C (97 ??F) 03/08/2019 10:50 AM CDT Respiratory Rate 14 03/08/2019 10:50 AM CDT Oxygen Saturation 97% 11/06/2018 2:20 PM CDT Inhaled Oxygen Concentration - - Weight 85.9 kg (189 lb 4.2 oz) 07/14/2023 7:52 A M TEXTILE CONVERSION MANAGER Height 167 cm (5' 5.75) 07/14/2023 7:52 AM TEXTILE CONVERSION MANAGER Body Mass Index 30.78 07/14/2023 7:52 AM TEXTILE CONVERSION MANAGER Plan of Treatment Not on file Medical Devices Implanted Type Area Ladies Attendant Device Identifier Shelf Expiration Date Model / [...] Clp Hrzn Ti 24 Clp Nito - [id number] Implanted:Qty: 1 on 11/05/2018 by Deejay Rinaldi M.D. at [facility] Hardware e.g. pins/screws /rods [employer] [id number] / / Mrk Brst Tiss Sn Mri 14ga - [id number] Implanted:Qty: 1 on 09/22/2018 at [facility] Imaging Marker Left: Breast C.R.Bard [id number] / / Misc Other Misc Other Tooth Procedures Procedure Name Priority Date/Time Associated Diagnosis Comments COMPREHENSIVE METABOLIC PANEL, S/P Routine 12/14/2018 10:18 AM CDT Malignant Neoplasm Of Breast Female Left (HCC) from Last 3 Months or Most Recently Relevant to Health Maintenance Results * Comprehensive Metabolic Panel (12/14/2018 10:18 AM CDT) Pathologist [facility] Potassium, S 4.4 3.6 - 5.2 mmol/L [...] CDT Gary Morales M.D. LAB BLOOD ADD-ON [facility] [address] from Last 3 Months or Most Recently Relevant to Health Maintenance Advance Directives For more information, please contact: [phone] * Full Code (Latest Code Status on [...]
--- OUTSIDE RECORDS SUMMARY | 2024-02-19 13:37 | XMS_ITS | Clinical Summary ---
Author Organization [facility] Address [address] [place] [address] Care Team Providers Care Dance Critic Name Role Phone Unavailable Primary Care Provider Unavailabl e Source Comments Patient records contain information from all sites at [facility]. For routine questions regarding patient records, call [phone] during business hours, M-F 8:00 AM - 5:00 PM Central Time. Record requests for emergency care only can be directed to [phone] at any time.[facility] Allergies Active Allergy Reactions Criticality Noted Date Comments House Dust Mite Cough Medium 03/20/2008 Iodine Shortness of breath (Reselect Reaction) Medium 05/18/2013 Iodine And Iodide Containing Products Shortness of breath (Reselect Reaction),Other (see comments) Medium 05/11/2014 Mold Rash Medium 1980 [place] mold per patient Medications Medication Sig Dispensed [...] Orders Only Department of Neurologic Surgery in [place], [place] [address] [place] [phone] Wendy Bonds, HERNANDO, C.N.P. Pain Back (Primary Dx) from Last 3 Months Immunizations Name Administration Dates Next Due H1N1 All Forms 04/24/2009 HepA / HepB 01/25/2003,08/19/2002,07/22/2002 Influenza Split 02/08/2015,04/21/2012 Influenza, Injectable, Mdck, Quadrivalent 01/31/2021 Influenza, Injectable, Quadrivalent 01/09,02/09/2018,02/07/2016,2014 Influenza, Seasonal, Injectable 02/04/2011,02/08,03/20/2006 Influenza, Unspecified 02/25/2023 MMR 05/15/2006 PCV13 01/26/2023,01/26/2020(Deferred: Other) PPSV23 01/26/2020 RZV (SHINGRIX) 03/03/2019, 9,11/04/2018,2018(Deferred: Not available from national stormwater leader) SARS-COV-2 (COVID-19) - MODERNA(Discontinued) 04/03/2021,07/04/2020,06/06/2020,2020 Td (Adult), [...] Grandmother Adela R eese Dementia Mother Lucretia Patelcarson Alcohol abuse Paternal Grandfather Fuad Sanchez, Kidney cancer Sister 1 Marium Jones 45 Breast cancer Sister 2 Scarlet DCIS Relation Name Status Comments Brother Juan Sanchez Alive Father Jack Sanchez Alive Maternal Grandfather Maternal Grandmother Adela Jin Mother Lucretiaaltagracia Patelcarson Other Other Paternal Grandfather Fuad Sanchez, Sr Paternal Grandmother Sister 1 Marium Jones [...] often do you attend chur ch or samaritan services? Never 07/06/2022 Do you belong to [...] and heating? Not hard at all 07/06/2022 [facility] [place] of Occupat ional Health - Occupational Stress [...] living situation today? I have a [facility] place to live 07/13/2023 Education Answer Date Recorded What is the highest level of school you have completed or the highest degree you have received? Master's degree (e.g., MA, MS, Mayra, MEd, RESIDENTIAL LEASING AGENT, CARMINE) 11/01/2018 Sex and Gender Information Value Date Recorded Sex Assigned at Female 08/05/2018 1:06 PM CDT Gender Identity Female 08/05/2018 1:06 PM CDT Sexual Orientation Straight 07/25/2020 4: 24 PM CDT Last Filed Vital Signs Vital Sign Reading Time Taken Comments Blood Pressure 103/66 07/14/2023 7:52 AM PROPOSAL COORDINATOR Pulse 66 07/14/2023 7:52 AM PROPOSAL COORDINATOR Temperature 36.1 ??C (97 ??F) 03/08/2019 10:50 AM CDT Respiratory Rate 14 03/08/2019 10:50 AM CDT Oxygen Saturation 97% 11/06/2018 2:20 PM CDT Inhaled Oxygen Concentration - - Weight 85.9 kg (189 lb 4.2 oz) 07/14/2023 7:52 A M PROPOSAL COORDINATOR Height 167 cm (5' 5.75) 07/14/2023 7:52 AM PROPOSAL COORDINATOR Body Mass Index 30.78 07/14/2023 7:52 AM PROPOSAL COORDINATOR Plan of Treatment Health Maintenance Due Date [...] this topic Medical Devices Implanted Type Area Manager Meat Device Identifier Shelf Expiration Date Model / [...] Clp Hrzn Ti 24 Clp Nito - [id number] Implanted:Qty: 1 on 11/05/2018 by Deejay Rinaldi M.D. at [facility] Hardware e.g. pins/screws /rods Breast [employer] [id number] / / Mrk Brst [facility] Mri 14ga - [id number] Implanted:Qty: 1 on 09/22/2018 at [facility] Imaging Marker Left: Breast C.R.Bard [id number] / / Misc Other Misc [...] CDT Gary Morales M.D. LAB BLOOD ADD-ON [facility] [address] [place], [place] [address] from Last 3 Months or Most Recently Relevant to Health Maintenance Advance Directives For more information, please contact: [phone] * Full Code (Latest Code Status on [...]
--- OUTSIDE RECORDS SUMMARY | 2024-02-19 13:37 | XMS_ITS | Clinical Summary ---
Author Organization [facility] Address [place], [place] [address] Care Team Providers Care Salesperson Household Appliances Name Role Phone Dann Huffman MD Primary Care Provider Allergies Active Allergy Reactions Criticality Noted Date [...] Encounters Date Type Department Care Team Description 02/03/2024 Telephone [facility] [address] [place] [address] Jayden Gastelum MD Results 02/01/2024 3:30 PM CDT Ancillary Procedure [facility] [address] [place] [address] 02/01/2024 2:45 PM CDT Ancillary Procedure [facility] [address] [place] [address] 02/01/2024 Travel 01/29/2024 8:20 AM CDT Office Visit [facility] at [facility] [address] [place] [address] Jayden Gastelum MD Procedure (L5-S1 ILESI) 01/07/2024 8:00 AM CDT Office Visit [facility] [address] [place] [address] Jayden Gastelum MD Consult (Bilateral feet pain, burning and fatigue x 4 years /Pain at its worse 09/17 /Lower lumbar pain /Pain at worse 09/17 /MRI 10/07/23/EMG 10/26/23) 01/07/2024 Travel 11/20/2023 Orders Only [facility] Scanner 1 scan: (1-Ord) INCOMING RECORDS-MRI, [facility], 11/20/2023 from Last 3 Months Social [...] Care Team (Late st Contact Info) Description 03/09/2024 11:20 AM CDT Office Visit [facility] [address] [place] [address] Jayden Gastelum MD [address] [place] [address] Health Maintenance Due Date Last Done Comments [...] PCV) 10/10/2023 Influenza for age 65+ 01/10/2024 COVID-19 vaccine series (2023- season) 2024 11/26/2023, 02/24/2023, 01/28/2022, Additional history exists Pap test for age 21-65 05/29/2024 , 05/29/2021, 12/02/2017, Additional history exists Procedures Procedure Name Priority Date/Time Associated Diagnosis Comments MR ANKLE LEFT WO Routine 02/01/2024 3:06 PM CDT Arch pain of right foot Heel pain, bilateral MR ANKLE RIGHT WO Routine 02/01/2024 2:4 2 PM CDT Arch pain of right foot Heel pain, bilateral AMB EPIDURAL STEROID INJECTION Routine 01/29/2024 12:00 AM CDT Spinal stenosis of lumbar region with neurogenic claudication Lumbosacral radiculopathy at L5 Lumbar facet arthropathy Arch pain of right foot Bilateral foot pain Spondylolisthesis of lumbar region Heel pain, bilateral SCAN CORRESP-IMAGING 11/20/2023 12:00 AM CDT HPV HIGH RISK Routine 05/29/2021 9:30 AM SIDE FRAMER from Last 3 Months or Most Recently Relevant to Health Maintenance Results * MR ANKLE LEFT WO (02/01/2024 3:06 PM CDT) Anatomical Region Laterality Modality ANKLE L Magnetic Resonan ce 02/02/2024 2:26 PM CDT Impressions 02/02/2024 2:26 PM CDT 1. Moderate degenerative or posttraumatic arthrosis ankle and mild at the tarsometatarsal and Chopart joints. 2. Large periarticular ganglion at the dorsal lateral margin of the talonavicular joint. Dictated by Jayden Patterson MD @ 02/02/2024 2:26:05 PM (Electronically Signed) Narrative 02/02/2024 2:26 PM CDT For Patients: ??As a result of the Cures Act, medical imaging exams and procedure reports are released immediately into your electronic medical record. ??You may view this report before your referring provider. ??If you have questions, please contact your health care provider. EXAM: MRI OF THE LEFT ANKLE, WITHOUT CONTRAST CLINICAL INDICATION: Ankle pain. PRIOR SURGERY: None. COMPARISON PLAIN FILMS: None. COMPARISON CROSS-SECTIONAL IMAGING STUDIES: None. TECHNICAL: Axial, sagittal and coronal T1, PD, PDFS and STIR images. ??1.5 Samantha MR scanner. ?? FINDINGS: OSSEOUS STRUCTURES: No fracture, bone marrow contusion, stress change or marrow replacement process. JOINT SPACES: Moderately prominent patchy sclerosis and subchondral edema the medial talar dome and body. Minor patchy subchondral edema and sclerosis in the medial tibial plafond. Marginal osteophytes. Physiologic fluid. Some synovitis in the posterior recess. Small os trigonum. Posterior subtalar joint show minimal marginal spurring but no other secondary degenerative change. Minor degenerative narrowing and spurring at the talonavicular and calcaneocuboid joints. Trace effusion calcaneocuboid joint. Moderately broad periarticular ossicle at the dorsal lateral margin of the talonavicular joint approximally 26 x 7 mm. Mild osteoarthritis narrowing with subarticular sclerosis and edema and mild spurring at the tarsometatarsal midfoot, most pronounced 4th & 5th common joint. LIGAMENTS: Syndesmotic Ligaments: The anterior and posterior syndesmotic ligaments are intact. Lateral Ligaments: Chronic tear and resorption. Patulous anterolateral capsule. Attenuated thin calcaneofibular ligament insertion. Distal ligament looks normal. Medial Ligaments: Some obscuration by marginal spurring and posttraumatic ossicles. No acute edema. No synovitis. Spring Ligaments: The calcaneonavicular spring ligament complex is intact. TENDONS: Flexor Tendons: The posterior tibial, flexor digitorum longus and flexor hallucis longus tendons are intact. Extensor Tendons: The anterior extensor tendons are intact. Achilles Tendon: The Achilles tendon is intact without tendinosis, tear or peritendinitis changes. Peroneal Tendons: The peroneus longus and brevis tendons are intact. ??No accessory peroneus quartus. TARSAL TUNNEL: The soft tissues of the tarsal tunnel are normal without mass or fluid collection. ??No abnormality along the course of the medial or lateral plantar nerves. SINUS TARSI: The structures of the sinus tarsi appear normal. ??No disruption of the interosseous ligaments or significant effacement of fat. PLANTAR SOFT TISSUES: The plantar fascia is intact. ??There is no significant plantar calcaneal spur. ??No atrophy or edema of the abductor digiti minimi muscle belly. OTHER FINDINGS: There is no soft tissue mass or fluid collection. Procedure Note Jayden Patterson MD - 02/02/2024 For Patients: As a result of the Cures Act, medical imagingexams and procedure reports are released immediately into your electronicmedical record. You may view this report before your referring provider.If you have questions, please contact your health care provider. EXAM: MRI OF THE LEFT ANKLE, WITHOUT CONTRAST CLINICAL INDICATION: Ankle pain. PRIOR SURGERY: None. COMPARISON PLAIN FILMS: None. COMPARISON CROSS-SECTIONAL IMAGING STUDIES: None. TECHNICAL: Axial, sagittal and coronal T1, PD, PDFS and STIR images. 1.[address] [facility]. FINDINGS: OSSEOUS STRUCTURES: No fracture, bone marrow contusion, stress change or marrow replacementprocess. JOINT SPACES: Moderately prominent patchy sclerosis and subchondral edema the medialtalar dome and body. Minor patchy subchondral edema and sclerosis in themedial tibial plafond. Marginal osteophytes. Physiologic fluid. Somesynovitis in the posterior recess. Small os trigonum. Posterior subtalarjoint show minimal marginal spurring but no other secondary degenerativechange. Minor degenerative narrowing and spurring at the talonavicular andcalcaneocuboid joints. Trace effusion calcaneocuboid joint. Moderatelybroad periarticular ossicle at the dorsal lateral margin of thetalonavicular joint approximally 26 x 7 mm. Mild osteoarthritis narrowingwith subarticular sclerosis and edema and mild spurring at thetarsometatarsal midfoot, most pronounced 4th & 5th common joint. LIGAMENTS: Syndesmotic Ligaments: The anterior and posterior syndesmotic ligamentsare intact. Lateral Ligaments: Chronic tear and resorption. Patulous anterolateralcapsule. Attenuated thin calcaneofibular ligament insertion. Distalligament looks normal. Medial Ligaments: Some obscuration by marginal spurring and posttraumaticossicles. No acute edema. No synovitis. Spring Ligaments: The calcaneonavicular spring ligament complex is intact. TENDONS: Flexor Tendons: The posterior tibial, flexor digitorum longus and flexorhallucis longus tendons are intact. Extensor Tendons: The anterior extensor tendons are intact. Achilles Tendon: The Achilles tendon is intact without tendinosis, tear orperitendinitis changes. Peroneal Tendons: The peroneus longus and brevis tendons are intact. Noaccessory peroneus quartus. TARSAL TUNNEL: The soft tissues of the tarsal tunnel are normal without mass or fluidcollection. No abnormality along the course of the medial or lateralplantar nerves. SINUS TARSI: The structures of the sinus tarsi appear normal. No disruption of theinterosseous ligaments or significant effacement of fat. PLANTAR SOFT TISSUES: The plantar fascia is intact. There is no significant plantar calcanealspur. No atrophy or edema of the abductor digiti minimi muscle belly. OTHER FINDINGS: There is no soft tissue mass or fluid collection. IMPRESSION: 1. Moderate degenerative or posttraumatic arthrosis ankle and mild at thetarsometatarsal and Chopart joints. 2. Large periarticular ganglion at the dorsal lateral margin of thetalonavicular joint. Dictated by Jayden Patterson MD @ 02/02/2024 2:26:05 PM (Electronically Signed) Jayden Gastelum MD MR * MR ANKLE RIGHT WO (02/01/2024 2:42 PM CDT) Anatomical Region Laterality Modality ANKLE R Magnetic Resonan ce 02/02/2024 2:21 PM CDT Impressions 02/02/2024 2:21 PM CDT 1. 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 2. Full-thickness tear and resorption ATFL. Least partial tearing of the calcaneofibular ligament. 3. Chronic tear and posttraumatic spurring and ossicles obscure the deltoid. Dictated by Jayden Patterson MD @ 02/02/2024 2:21:05 PM (Electronically Signed) Narrative 02/02/2024 2:21 PM CDT For Patients: ??As a result of the Cures Act, medical imaging exams and procedure reports are released immediately into your electronic medical record. ??You may view this report before your referring provider. ??If you have questions, please contact your health care provider. EXAM: MRI OF THE RIGHT ANKLE, WITHOUT CONTRAST CLINICAL INDICATION: Ankle pain. PRIOR SURGERY: None. COMPARISON PLAIN FILMS: None. COMPARISON CROSS-SECTIONAL IMAGING STUDIES: None. TECHNICAL: Axial, sagittal and coronal T1, PD, PDFS and STIR images. ??1.5 Samantha MR scanner. ?? FINDINGS: OSSEOUS STRUCTURES: No fracture, bone marrow contusion, stress change or marrow replacement process. JOINT SPACES: Subchondral cysts and surrounding edema and sclerosis in the tibial plafond and medial talar dome. Irregular up to grade 4 cartilage fissuring associated with these areas of secondary degenerative changes. Physiologic fluid in the joint. Large irregularly margined os trigonum or fractured posterior process of the talus. Moderately prominent degenerative arthrosis with subchondral cysts, sclerosis and edema in the posterior subtalar joint. Minor degenerative narrowing in the middle subtalar joint with minimal spurring. Mild narrowing and spurring at the margins of the talonavicular and navicular cuneiform joint. Small chronic posttraumatic ossicle at the dorsal margin of the calcaneocuboid joint. Small effusions in both joints with anatomic alignment. Scattered shallow subchondral edema and cyst foci most pronounced at the 4th and 5th tarsometatarsal joints. Anatomic alignment. LIGAMENTS: Syndesmotic Ligaments: The anterior and posterior syndesmotic ligaments are intact. Lateral Ligaments: Chronic full-thickness tear and resorption of the ATFL. Thin indistinct calcaneofibular ligament. No edema. No synovitis. Medial Ligaments: Disorganized fibers with interspersed posttraumatic ossicles. No acute edema or synovitis. Spring Ligaments: The calcaneonavicular spring ligament complex is intact. TENDONS: Flexor Tendons: The posterior tibial, flexor digitorum longus and flexor hallucis longus tendons are intact. Moderate atrophy in the flexor hallucis muscle. Extensor Tendons: The anterior extensor tendons are intact. Achilles Tendon: The Achilles tendon is intact without tendinosis, tear or peritendinitis changes. Peroneal Tendons: The peroneus longus and brevis tendons are intact. ??No accessory peroneus quartus. TARSAL TUNNEL: The soft tissues of the tarsal tunnel are normal without mass or fluid collection. ??No abnormality along the course of the medial or lateral plantar nerves. SINUS TARSI: The structures of the sinus tarsi appear normal. ??No disruption of the interosseous ligaments or significant effacement of fat. PLANTAR SOFT TISSUES: The plantar fascia is intact. ??There is small plantar calcaneal spur. ??No atrophy or edema of the abductor digiti minimi muscle belly. OTHER FINDINGS: There is no soft tissue mass or fluid collection. ?? Procedure Note Jayden Patterson MD - 02/02/2024 For Patients: As a result of the Cures Act, medical imagingexams and procedure reports are released immediately into your electronicmedical record. You may view this report before your referring provider.If you have questions, please contact your health care provider. EXAM: MRI OF THE RIGHT ANKLE, WITHOUT CONTRAST CLINICAL INDICATION: Ankle pain. PRIOR SURGERY: None. COMPARISON PLAIN FILMS: None. COMPARISON CROSS-SECTIONAL IMAGING STUDIES: None. TECHNICAL: Axial, sagittal and coronal T1, PD, PDFS and STIR images. 1.[address] [facility]. FINDINGS: OSSEOUS STRUCTURES: No fracture, bone marrow contusion, stress change or marrow replacementprocess. JOINT SPACES: Subchondral cysts and surrounding edema and sclerosis in the tibialplafond and medial talar dome. Irregular up to grade 4 cartilage fissuringassociated with these areas of secondary degenerative changes. Physiologicfluid in the joint. Large irregularly margined os trigonum or fracturedposterior process of the talus. Moderately prominent degenerativearthrosis with subchondral cysts, sclerosis and edema in the posteriorsubtalar joint. Minor degenerative narrowing in the middle subtalar jointwith minimal spurring. Mild narrowing and spurring at the margins of thetalonavicular and navicular cuneiform joint. Small chronic posttraumaticossicle at the dorsal margin of the calcaneocuboid joint. Small effusionsin both joints with anatomic alignment. Scattered shallow subchondraledema and cyst foci most pronounced at the 4th and 5th tarsometatarsaljoints. Anatomic alignment. LIGAMENTS: Syndesmotic Ligaments: The anterior and posterior syndesmotic ligamentsare intact. Lateral Ligaments: Chronic full-thickness tear and resorption of the ATFL.Thin indistinct calcaneofibular ligament. No edema. No synovitis. Medial Ligaments: Disorganized fibers with interspersed posttraumaticossicles. No acute edema or synovitis. Spring Ligaments: The calcaneonavicular spring ligament complex is intact. TENDONS: Flexor Tendons: The posterior tibial, flexor digitorum longus and flexorhallucis longus tendons are intact. Moderate atrophy in the flexorhallucis muscle. Extensor Tendons: The anterior extensor tendons are intact. Achilles Tendon: The Achilles tendon is intact without tendinosis, tear orperitendinitis changes. Peroneal Tendons: The peroneus longus and brevis tendons are intact. Noaccessory peroneus quartus. TARSAL TUNNEL: The soft tissues of the tarsal tunnel are normal without mass or fluidcollection. No abnormality along the course of the medial or lateralplantar nerves. SINUS TARSI: The structures of the sinus tarsi appear normal. No disruption of theinterosseous ligaments or significant effacement of fat. PLANTAR SOFT TISSUES: The plantar fascia is intact. There is small plantar calcaneal spur. Noatrophy or edema of the abductor digiti minimi muscle belly. OTHER FINDINGS: There is no soft tissue mass or fluid collection. IMPRESSION: 1. 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 2. Full-thickness tear and resorption ATFL. Least partial tearing of thecalcaneofibular ligament. 3. Chronic tear and posttraumatic spurring and ossicles obscure thedeltoid. Dictated by Jayden Patterson MD @ 02/02/2024 2:21:05 PM (Electronically Signed) Jayden Gastelum MD MR * AMB EPIDURAL STEROID INJECTION (01/29/2024 12:00 AM CDT) Jayden Gastelum MD NEUROLOGY ORD * SCAN CORRESP-IMAGING (11/20/2023 12:00 AM CDT) Anatomical Region Laterality Modality Other Scanner OTHER * HPV HIGH RISK (05/29/2021 9:30 AM SIDE FRAMER) TYPE 16 Negative Negative 05/30/2021 5:37 PM SIDE FRAMER [facility] TYPE 18 Negative Negative 05/30/2021 5:37 PM SIDE FRAMER [facility] OTHER HIGH RISK TYPES Negative Negative 05/30/2021 5:37 PM SIDE FRAMER [facility] Other (Cervical/Vagina l) 05/29/2021 9:30 AM SIDE FRAMER 05/30/2021 7:33 AM SIDE FRAMER Narrative [facility] - 05/30/2021 5:37 PM SIDE FRAMER HPV types 16, 18, 31, 33, 35, 39, 45, 51, 52, 56, 58, 59, 66 and 68 DNA were undetectable or below the pre-set threshold. Methodology: Jake Elvin 4800 HPV Test Jessa Castellano MD MICROBIOLOGY [facility] [address] [place] [address], [place] from Last 3 Months or Most Recently Relevant to Health Maintenance Care Teams Salesperson Household Appliances Relationship Specialty Start Date End Date Dann Huffman MD [address] [place] [address] PCP - General Internal Medicine 02/22/20
--- OUTSIDE RECORDS SUMMARY | 2024-02-19 13:37 | XMS_ITS | Clinical Summary ---
[facility] Address [address] [address] Care Team Providers Care Range Conservationist Name Role Phone Needs Pcp, Assignment Primary Care Provider Source Comments You are receiving this document as you are listed as the primary care provider,follow-up provider, or the patient has been referred to you for consultation.This is in compliance with the Medicare andJoint [facility] Hospital[facility] EHR Incentive Program,which states Providers who transition their patient to another setting of careor provider of care or refers their patient to another provider of care shouldprovide summary care record for each transition of care or referral. [employer] Allergies Active Allergy Reactions Criticality Noted Date [...] 1960 Hep C Screening (Preventive Services) 1960 Adult Preventive Visit 1976 Cholesterol 10/10/2003 [...] on patient's age to complete this topic Infant RSV Aged Out No longer eligi ble based on patient's age to complete this topic MCV4 Aged Out No longer eligi ble based on patient's age to complete this topic Care Teams Range Conservationist Relationship Specialty Start Date End Date Needs Pcp, [place] [address] PCP - General 12/16/21
--- OUTSIDE RECORDS SUMMARY | 2024-02-19 13:37 | XMS_ITS | Encounter Summary ---
Author Organization [facility] Address [address] [place] [id number] Care Team Providers Care Treatment Counselor Name Role Phone Unavailable Primary Care Provider Unavailabl e Reason for Referral * Outpatient (Routine) - Authorized Specialty Diagnoses / Procedures Referred By Danielito modi Referred To Contact Diagnoses Pain Back Procedures DX Lumbar Spine 4+ Views Wendy Bonds APRN, C.N.P. [address] [place] [phone] [facility] Referral ID Status Reason Start Date Expiration Date V isits Requested Visits Authorized [id number] Authorized 12/04/2023 12/03/2024 1 1 Encounter Details Date Type Department Care Team (Late st Contact Info) Description 12/04/2023 Orders Only Department of Neurologic Surgery in [place], [place] [address] [place] [phone] Wendy Bonds APRN, C.N.P. [address] [place] [phone] Pain Back (Primary Dx) Social History Tobacco Use Types Packs/Day Years Used Date Smoking Tobacco: Never Passive Smoke Exposure: Never Smokeless Tobacco: Never Alcohol Use Standard Drinks/Week Comments Yes 4 (1 standard drink = 0.6 oz pur e alcohol) [facility] Utilities Answer Date Recorded In the [...] often do you attend chur ch or confucianist services? Never 07/06/2022 Do you belong to any clubs o r organizations such as latter-day groups, unions, fraternal or athletic groups, or [...] and heating? Not hard at all 07/06/2022 [facility] - Occupational Stress [...] Master's degree (e.g., MA, MS, Mayra, MEd, BIOINFORMATICS ENGINEER, CARMINE) 11/01/2018 Sex and Gender Information Value [...]
--- OUTSIDE RECORDS SUMMARY | 2024-02-19 13:37 | XMS_ITS | Encounter Summary ---
Author Organization [facility] Address [address] [place] [address] Care Team Providers Care 3D Technologist Name Role Phone Unavailable Primary Care Provider Unavailabl e Reason for Visit * Reason Onset Date Comments [facility] 11/11/2023 SP[facility] Encounter Details Date Type Department Care Team (Late st Contact Info) Description 11/11/2023 Clinical Communication Department of Spine in [place], [place] [address] [place] [address] Provider, Unknown [facility] (SPN/) Social History Tobacco Use Types Packs/Day Years Used Date Smoking Tobacco: Never Passive Smoke Exposure: Never Smokeless Tobacco: Never Alcohol Use Standard Drinks/Week Comments Yes 4 (1 standard drink = 0.6 oz pur e alcohol) [facility] Utilities Answer Date Recorded In the past [address] [facility] [employer], gas, oil, or water [employer] threatened to shut off services in your [...] How often do you attend chur or orthodoxy services? Never 07/06/2022 Do you belong to any clubs o r organizations such as restorationism groups, unions, fraternal or athletic groups, or [...] and heating? Not hard at all 07/06/2022 [facility] - Occupational [...] your living situation today? I have a [facility] place to live 07/13/2023 Education Answer Date Recorded What is the highest level of school you have completed or the highest degree you have received? Master's degree (e.g., MA, MS, Mayra, MEd, COMPANY MARKER, CARMINE) 11/01/2018 Sex and Gender Information Value Date Recorded Sex Assigned at Female 08/05/2018 1:06 PM CDT Gender Identity Female 08/05/2018 1:06 PM CDT Sexual Orientation Straight 07/25/2020 4: 24 PM CDT documented as of this encounter Plan of Treatment Not on file documented as of this encounter Visit Diagnoses Not on filedocumented in this encounter
--- OUTSIDE RECORDS SUMMARY | 2024-02-19 13:37 | XMS_ITS ---
Author Organization [facility] Address [address] [place] [address] Care Team Providers Care Structural Engineering Drafting Officer Name Role Phone Unavailable Unavailable Unavailable Surgery Details Not on file Complications Check Surgery Details section. Procedure Estimated Blood Loss Check Surgery Details section. Procedure Findings Check Surgery Details section. Procedure Specimens Taken Check Surgery Details section.
--- OUTSIDE RECORDS SUMMARY | 2024-02-19 13:37 | XMS_ITS ---
Author Organization [facility] Address [address] [place] [address] Care Team Providers Care Correction Officer Name Role Phone Unavailable Primary Care Provider [...] treatments are documented for this patient in [facility]. Treatments may have been administered in another system. 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 Your Survivorship Care Plan Provided on 01/26/2020 General Information Patient name Winnie Sanchez (home) [phone] (work) Date of 1960 Introduction This is your personal survivorship care plan. It is both a summary of your treatment history as well as a follow-up plan to guide you through the management of your continued medical care. The plan was developed by a multidisciplinary team of [facility] cancer providers to help you understand, discuss, [...] Morales MD. (Medical Oncology) Lidya Good APRN, [employer]. (Breast Clinic) Raina Szymanski, MS, [facility]. (Genetic Counselor) Cancer Diagnosis and Staging Information [...] The tumor size was 1.4 cm and ER/SD were positive and HER2 negative. She had [...] proven to be invasive ductal, intermediate grade, ER/SD positive, and HER2 negative with a Ki-67 [...] are largely based on guidelines from the [place] [employer] On[employer] (ASCO), the biggest [...] your life, including relationships, school, work, and skilled nursing plans. Anger is a normal response to [...] you, such as physical therapists, occupational therapists, internet marketing specialist, or mental health care providers Coping With [...] spiritual framework. -Talk with your spiritual or regional sales leader to help guide you through some of the questions raised by your illness. -Consider using the Collar [facility]ner staff at [facility] to help you with your spiritual questions. [...] fat tissue -Talking to a dietitian or solder making supervisor who can help you plan a healthy [...] care provider to refer you to a [facility] psychosocial rehabilitation counselor. He or shecan give you workplace information. [...] a disability to have equal opportunities. A psychosocial rehabilitation counselor can help you look at your situation [...] your doctor to help you quit. The [facility] can help. Stress management [...]
== END 2024-02-19 07:51 | disposition home or self-care (01) ==
LOC: NFLDREF 13:33
PROVIDERS: PCP Internal Medicine; Referring Provider Internal Medicine; Visit Provider Internal Medicine
DX: E03.9 Hypothyroidism, unspecified (principal); E78.5 Hyperlipidemia, unspecified
CPT/HCPCS: 80053; 80061; 84443

== ENCOUNTER 2024-05-31 15:15 | Outpatient (RCR) | payer BC, OTHER, SELFPAY ==
--- OUTSIDE RECORDS SUMMARY | 2024-04-26 15:39 | XMS_ITS | Continuity of Care Document ---
Author Organization [facility] are Address [address] [place] [address] Phone Support Name Relationship Address Phone Other, Physician Personal Relationship Unknown Un available YO MARTINEZ/GEORGINA PATRICIO Personal Relationship Unknown Unavailable Georgina Barragan MD Personal Relationship [address] [place] [address] Care Teams Patient Care Team Team Status: Active Member Role Status Dates YO/GEORGINA MARTINEZ Family Provider Active Georgina Barragan MD Primary Care Provider Active Visit Care Team Team Status: Inactive Member Role Status Dates Physician Other Primary Care Provider Active Sta rt: October 13, 2023 End: October 13, 2023 BRETT BARRAGAN-PT, MICHELLE Family Provider Active Start: October 13, 2023 End: October 13, 2023 Georgina Barragan MD Attending Provider Active Start: October 13, 2023 End: October 13, 2023 Chief Complaint and Reason for Visit Chief Complaint Admit Date video feet pain- per dr barragan October 122023 10:26am Social History Smoking Status Unknown if ever smoked Observation Status Observation Response Date of Response Patient Sex Female October 16, 2023 3 :24pm Assigned Sex Female October 09 Insurance Providers [employer] Address [address] [address] Contact Info. Home Phone: Payer Policy Id Coverage Id Subscriber's Name Subscriber Id Effective Date Expiration Date JANNIE [id number] [employer] [id number] [employer] 2003 Encounters Encounter Location(s) Arrival/Admit Date Discharge/Depart Date Provider(s) Departed Physician/Prov ider Office Visit [facility] October 13, 2023 10:26am October 13, 2023 11:17am Georgina Barragan MD Plan of Treatment Author Georgina Barragan [facility] Authored October 13, 2023 1:11p m Video Telemedicine Visit for Bilateral Foot pain. She has had many months of bilateral foot pain, fatigue, burning sensation especially after working on her feet all day. Painful at night and sometimes keeps her awake. Not painful in the mornings. Has had plantar fasciitis in the past but quite different pain pattern. No back pain but does get hip pain at times. PT for foot pain/plantar fasciitis has not been helpful. MRI recently obtained reviewed in detail. There is facet arthropathy and some bulging discs, but the most likely contributer to her pain pattern is spondylolisthesis at L4-5 with severe spinal stenosis at this level. We discussed options, including PT, EMG, BINTA, and Surgical Referral. I will communicate with her PT at [place] and we will order an EMG at [place]. She is planning a trip to [place] this December so if we proceed with a diagnostic/therapeutic BINTA we would want to schedule that for the third week in November or so. I spent 25 total minutes of today's visit for the problem(s) listed above reviewing the medical chart, obtaining a history and exam of the patient, discussing the treatment plan with the patient, and documenting in the EHR. Future Tests Future scheduled test information is unavailable Pending Tests Test Name Ordered Date Scheduled Date XR Lumbar BINTA w Fl October 13, 2023 1:11pm 6 Weeks Future Visits Future appointment information is unavailable Referrals to Other Providers Referral information is unavailable Future Procedures Procedure Name Ordered Date Scheduled Date Electromyography (EMG) October 13, 2023 1:13pm Future Medications Future medication information is unavailable Patient Instructions Patient instructions are unavailable
--- OUTSIDE RECORDS SUMMARY | 2024-04-26 15:39 | XMS_ITS | Continuity of Care Document ---
Author Organization [facility] are Address [address] [place] [address] Phone Support Name Relationship Address Phone Other, Physician Personal Relationship Unknown Un available YO MARTINEZ/GEORGINA PATRICIO Personal Relationship Unknown Unavailable Georgina Barragan MD Personal Relationship [address] [place] [address] Care Teams Patient Care Team Team Status: Active Member Role Status Dates YO/GEORGINA MARTINEZ Family Provider Active Physician Other Primary Care Provider Active Patient Care Team Team Status: Inactive Member Role Status Dates Physician Other Primary Care Provider Active Sta rt: October 13, 2023 End: October 13, 2023 YO/GEORGINA BARRAGAN-PT, MICHELLE Family Provider Active Start: October [...] Date of Response Patient Sex Female October 13, 2023 1 1:18am Assigned Sex Female October 09 Insurance Providers [employer] Address [address] [address] Contact Info. Home Phone: Payer Policy Id Coverage Id Subscriber's Name Subscriber Id Effective Date Expiration Date JANNIE [id number] [employer] [id number] Jonathan nixon 2005 Encounters Encounter Location(s) Arrival/Admit Date Discharge/Depart Date Provider(s) Departed Physician/Prov ider Office Visit [facility] October 13, 2023 10:26am October 13, 2023 11:17am Georgina Barragan MD
== END 2024-06-10 16:15 | disposition home or self-care (01) ==
PROVIDERS: PCP Internal Medicine; Visit Provider Internal Medicine
DX: M48.062 Spinal stenosis, lumbar region with neurogenic claudication (principal); M54.16 Radiculopathy, lumbar region; M47.816 Spondylosis without myelopathy or radiculopathy, lumbar region; M79.671 Pain in right foot; M79.672 Pain in left foot; M43.16 Spondylolisthesis, lumbar region; M48.00 Spinal stenosis, site unspecified; Z51.89 Encounter for other specified aftercare
CPT/HCPCS: 97110; 97112; 97140; 97161

== ENCOUNTER 2024-06-02 11:16 | Outpatient (CLI) | payer BC, SELFPAY ==
--- NOTE | 2024-06-02 12:20 | P.ANES_ITS ---
Anesthesia Charges Start Date/Time Anesthesia Start Date: 06/02/24 Anesthesia Start Time: 11:45 Stop Date/Time Anesthesia Stop Date: 06/02/24 Anesthesia Stop Time: 12:17 Coding CPT Codes CPT Codes: RAFA LWR INTST NDSC NOS - [id number] ([id number]) P2 - PATIENT W/MILD SYST DISEASE, QK - COMMUNITY RESOURCE CONSULTANT 2-4 CNCRNT ANES PROC, QX - CLOCK REPAIR TECHNICIAN SVC W/ MD MED DIRECTION
--- NOTE | 2024-06-02 12:20 | W.ANESCHARGE ---
Anesthesia Charges Start Date/Time Anesthesia Start Date: 06/02/24 Anesthesia Start Time: 11:45 Stop Date/Time Anesthesia Stop Date: 06/02/24 Anesthesia Stop Time: 12:17 Coding CPT Codes CPT Codes: RAFA LWR INTST NDSC NOS - [id number] ([id number]) P2 - PATIENT W/MILD SYST DISEASE, QK - AIRCRAFT MAINTENANCE SUPERVISOR 2-4 CNCRNT ANES PROC, QX - EXTRACTOR OPERATOR SOLVENT PROCESS SVC W/ MD MED DIRECTION
--- NOTE | 2024-06-02 12:27 | P.ANES_ITS ---
Anesthesia Charges Start Date/Time Anesthesia Start Date: 06/02/24 Anesthesia Start Time: 11:45 Stop Date/Time Anesthesia Stop Date: 06/02/24 Anesthesia Stop Time: 12:17 Coding CPT Codes CPT Codes: RAFA LWR INTST NDSC NOS - [id number] ([id number]) QK - INSPECTOR BALANCE TRUING 2-4 CNCRNT RAFA PROC, QX - LOADING MACHINE ADJUSTER SVC W/ MD MED DIRECTION, P2 - PATIENT W/MILD SYST DISEASE
--- NOTE | 2024-06-02 12:27 | W.ANESCHARGE ---
Anesthesia Charges Start Date/Time Anesthesia Start Date: 06/02/24 Anesthesia Start Time: 11:45 Stop Date/Time Anesthesia Stop Date: 06/02/24 Anesthesia Stop Time: 12:17 Coding CPT Codes CPT Codes: RAFA LWR INTST NDSC NOS - [id number] ([id number]) QK - FLEXIBLE BABYSITTER 2-4 CNCRNT RAFA PROC, QX - MACHINIST FIRST CLASS SVC W/ MD MED DIRECTION, P2 - PATIENT W/MILD SYST DISEASE
== END 2024-06-02 11:17 | disposition home or self-care (01) ==
LOC: OP CLINIC 11:17
PROVIDERS: PCP Internal Medicine; Visit Provider Surgery
DX: Z12.11 Encounter for screening for malignant neoplasm of colon (principal); D12.2 Benign neoplasm of ascending colon; D12.7 Benign neoplasm of rectosigmoid junction; Z86.0100 Personal history of colon polyps, unspecified
CPT/HCPCS: 00811; 45385; 88305; J2704

== ENCOUNTER 2025-01-19 08:16 | Outpatient (CLI) | payer BC, SELFPAY ==
[2025-01-23 00:40] LABS: MMA Vitamin B12 Status 0.35 umol/L (0.00-0.40)
== END 2025-01-19 08:17 | disposition home or self-care (01) ==
LOC: NPINS 08:17
PROVIDERS: PCP Internal Medicine; Visit Provider Psychiatry & Neurology Neurology
DX: G89.29 Other chronic pain (principal)
CPT/HCPCS: 83036; 83921; 84207; 86334

== ENCOUNTER 2025-02-21 08:18 | Outpatient (CLI) | payer BC, SELFPAY | END 2025-02-21 08:19 | disposition home or self-care (01) | LOC: NFLDREF 02-23 14:36 | PROVIDERS: PCP Internal Medicine; Referring Provider Internal Medicine; Visit Provider Internal Medicine | DX: Z00.00 Encounter for general adult medical examination without abnormal findings (principal) | CPT/HCPCS: 80053; 80061; 84443 ==

== ENCOUNTER 2025-03-08 14:07 | Outpatient (CLI) | payer BC, SELFPAY | END 2025-03-08 14:08 | disposition home or self-care (01) | LOC: NFLDREF 14:07 | PROVIDERS: PCP Internal Medicine; Visit Provider Internal Medicine | DX: D47.2 Monoclonal gammopathy (principal) | CPT/HCPCS: 84165 ==